=== PATIENT | female | born 1985 | race Caucasian/White ===

== ENCOUNTER → 2018-04-13 16:00 | Outpatient (CLI) | payer OTHER, MEDICAID, SELFPAY ==
[2018-04-13 18:43] LABS: Chlamydia Trachomatis by PCR Negative (Negative); Neisserai gonorrhoeae by PCR Negative (Negative); Probe Check PASS; Sample Adequacy Control PASS; Specimen Processing Control PASS
[2018-04-19 11:45] LABS: HPV Reflexed? NOT INDICATED
== END ==
PROVIDERS: Visit Provider Obstetrics & Gynecology
DX: Z12.4 Encounter for screening for malignant neoplasm of cervix (principal); Z11.3 Encounter for screening for infections with a predominantly sexual mode of transmission
CPT/HCPCS: 87491; 87591; 88175; G0145

== ENCOUNTER → 2018-04-20 14:34 | Outpatient (CLI) | payer OTHER, MEDICAID, SELFPAY ==
[2018-04-20 15:47] LABS: Color, Urine Yellow (Yellow); Glucose, Dipstick Normal (Normal); Ketone-Dipstick 5 mg/dl (Negative); Leukocyte Esterase-Dipstick 25 /ul (Negative); Nitrite-Dipstick Negative (Negative); Occult Blood-Urine Negative /ul (Negative); Protein-Dipstick Negative (Negative); Specific Gravity, Urine 1.025 (1.002-1.030); Urine Bilirubin Dipstick Negative (Negative); Urine Clarity Turbid (Clear); Urine Urobilinogen Normal (Normal)
[2018-04-20 16:00] LABS: Absolute Lymphocyte Count 1.88 X10^3/ul (0.83-4.51); Absolute Neutrophil Count 6.3 X10^3/uL (2.0-7.7); Basophil# 0.02 X10^3/uL; Basophil% 0.2 % (0-1); Eosinophil# 0.28 X10^3/uL; Eosinophils% 3.1 % (0-5); Hematocrit 38.8 % (37-47); Hemoglobin 13.3 g/dl (12.0-15.0); Lymphocyte # 1.88 X10^3/ul (4.0); Lymphocyte % 20.6 % (19-41); Mean Corp Hgb Conc 34.3 g/gl (32-36); Mean Corpuscular Hgb 28.8 pg (27.0-32.0); Mean Platelet Vol. 10.3 fl (6.2-12.0); Monocyte# 0.63 X10^3/uL; Monocyte% 6.9 % (0-10); Neutrophil # 6.31 X10^3/uL (2.7-7.7); Neutrophil % 69.1 % (47-70); Platelet Count 242 K/mm3 (150-450); RBC Distribution Width CV 14.2 % (11.6-14.6); RBC Distribution Width SD 43.1 fl (35.1-43.9); Red Blood Count 4.62 M/mm3 (4.2-5.4); White Blood Count 9.1 K/mm3 (4.4-11.0)
[2018-04-20 16:03] LABS: POSITIVE COUNT NO; POSITIVE DIFFERENTIAL NO; POSITIVE MORPHOLOGY NO
[2018-04-20 16:05] LABS: Amphetamine Urine VISTA NEGATIVE (<1000 ng/mL); Barbiturate Urine VISTA NEGATIVE (< 200 ng/mL); Benzodiazepine Urine VISTA NEGATIVE (< 200 ng/mL); Cocaine Urine VISTA NEGATIVE (< 300 ng/mL); Ecstacy Urine VISTA NEGATIVE (< 500 ng/mL); Methadone Urine VISTA NEGATIVE (< 300 ng/mL); PCP Urine VISTA NEGATIVE (< 25 ng/mL); THC Urine VISTA NEGATIVE (< 50 ng/mL); Vista UDS pH Range 4
[2018-04-20 16:21] LABS: Thyroid Stim Hormone (TSH) 0.61 uIU/mL (0.358-3.74)
[2018-04-20 16:58] LABS: HIV - WCH Non-Reactive (Nonreactive)
[2018-04-22 13:32] LABS: HEPATITIS B SURFACE AG Negative (Negative); Hep C Antibodies 0.1 s/co ratio (0.0-0.9)
[2018-04-27 02:28] LABS: Prenatal RPR NONREACTIVE (NONREACTIVE)
== END ==
PROVIDERS: Visit Provider Obstetrics & Gynecology
DX: Z34.81 Encounter for supervision of other normal pregnancy, first trimester (principal)
CPT/HCPCS: 36415; 80307; 81002; 84443; 85025; 86703; 86762; 86803; 87340

== ENCOUNTER → 2018-08-31 13:00 | Outpatient (CLI) | payer OTHER, MEDICAID, SELFPAY ==
[2018-08-31 16:18] LABS: Hematocrit 34.1 % (37-47); Hemoglobin 11.3 g/dl (12.0-15.0); Mean Corp Hgb Conc 33.1 g/gl (32-36); Mean Corpuscular Hgb 29.1 pg (27.0-32.0); Mean Corpuscular Volume 87.9 fL (81-99); Mean Platelet Vol. 10.5 fl (6.2-12.0); Platelet Count 180 K/mm3 (150-450); RBC Distribution Width CV 13.6 % (11.6-14.6); RBC Distribution Width SD 43.5 fl (35.1-43.9); Red Blood Count 3.88 M/mm3 (4.2-5.4); White Blood Count 7.3 K/mm3 (4.4-11.0)
[2018-08-31 16:19] LABS: Scan Indicated on CBC? Y/N NO
[2018-08-31 16:29] LABS: Glucose Challenge Gest 1H 50g 174 mg/dL (70-140)
--- OUTSIDE RECORDS SUMMARY | 2018-11-05 03:00 | XMS RPT_ITS ---
:1985 Author Organization OHIP Care Team Providers Name Role Phone ARCHANA LAMA Attending Unavailable POOJA MONTENEGRO MD Primary Care Unavailable Vivian George Attending Unavailable Vivian George Attending Unavailable Vivian George Attending Unavailable PROBLEMS PROBLEMS DATE TYPE CONDITION / CODE ATTENDING STATUS SOURCE 08/31/2018 Unknown Z34.82 - Vivian George Active [place] Encounter for Community supervision of Hospital other normal Repository , second trimester / Z34.82(ICD-10) 04/20/2018 Unknown Z34.81 - Vivian George Active [place] Encounter for Community supervision of Hospital other normal Repository , first trimester / Z34.81(ICD-10) 05/11/2018 Unknown Z12.4 - Encounter Vivian George Active [place] for screening for Community malignant Hospital neoplasm of Repository cervix / Z12.4(ICD-10) PROCEDURES PROCEDURES No Procedure Records FoundRESULTS RESULTS CBC-COMPLETE BLOOD CNT Collected: 08/31/2018 Status: F Source: [place] NO DIFF 1:05 PM [facility] REPOSITORY TYPE CODE TESTS RESULT OUT OF RANGE REFERENCE UNITS LAB L100.1000 4.4-11.0 K/mm3 Normal WBC 7.3 LAB L100.1200 4.2-5.4 M/mm3 Low RBC 3.88 LAB L100.1300 12.0-15.0 g/dl Low HGB 11.3 LAB L100.1400 37-47 % Low HCT 34.1 LAB L100.1500 81-99 fL Normal MCV 87.9 LAB L100.1600 27.0-32.0 pg Normal MCH 29.1 LAB L100.1700 32-36 g/gl Normal MCHC 33.1 LAB L100.1810 11.6-14.6 % Normal RDW CV 13.6 LAB L100.1820 35.1-43.9 fl Normal RDW SD 43.5 LAB L100.1900 150-450 K/mm3 Normal PLT 180 LAB L100.2000 6.2-12.0 fl Normal MPV 10.5 Performed By: #### L100.0500 #### [facility] [address] [place], [place], [address] GLUCOSE CHALLENGE GEST Collected: 08/31/2018 Status: F Source: [place] 1H 50G 1:05 PM [facility] REPOSITORY TYPE CODE TESTS RESULT OUT OF RANGE REFERENCE UNITS LAB L501.0250 70-140 mg/dL High GLU GEST 174 50g 1H Performed By: #### L501.0250 #### [facility] [address] [place], [address] URINE DRUG SCREEN Collected: 04/20/2018 Status: F Source: [place] (VISTA) 2:45 PM [facility] REPOSITORY Order Comment: List of Drugs Taken or Suspected? UNK TYPE CODE TESTS RESULT OUT OF RANGE REFERENCE UNITS LAB L505.0075 TO BE Normal CONFIRMED Result Comment: CONFIRMATORY TESTING FOR ALL POSITIVE URINE DRUG SCREEN RESULTS WILL ONLY BE SENT OUT UPON PHYSICIAN ORDER. VISTA Urine Drug Screen methods provide only preliminary analytical test results. A more specific alternate chemical method must be used in order to obtain a confirmed analytical result. Gas chromatography/mass spectrometery (GC/MS) is the preferred confirmatory method. Clinical consideration and professional judgement should be applied to any drug of abuse test result, particularly when preliminary positive results are used. URINE TCA TESTING MUST BE ORDERED SEPARATELY. USE TEST MNEMONIC: [facility]CA LAB L505.5005 VISTA UDS PH 4 Normal LAB L505.5015 <1000 ng/mL AMPHETAMINES Normal NEGATIVE LAB L505.5025 < 200 ng/mL BARBITIURATES Normal NEGATIVE LAB L505.5035 < 200 ng/mL BENZODIAZIPINE Normal NEGATIVE LAB L505.5045 < 300 ng/mL COCAINE Normal NEGATIVE LAB L505.5055 < 500 ng/mL ECSTACY Normal NEGATIVE LAB L505.5065 < 300 ng/mL METHADONE Normal NEGATIVE LAB L505.5075 < 300 ng/mL OPIATES Normal NEGATIVE LAB L505.5085 < 25 ng/mL PCP Normal NEGATIVE LAB L505.5095 < 50 ng/mL THC Normal NEGATIVE Performed By: #### L505.4999 #### [facility] [address] [facility] [place], [place], [address] URINALYSIS, ROUTINE Collected: 04/20/2018 Status: F Source: [place] (DIPSTICK) 2:45 PM [facility] REPOSITORY Order Comment: How was Urine Obtained? Urine, Random TYPE CODE TESTS RESULT OUT OF RANGE REFERENCE UNITS LAB L400.3000 Yellow COLOR Normal Yellow LAB L400.3050 Clear Normal CLARITY Turbid LAB L400.3200 Normal mg/dl Normal GLUCOSE, UR Normal LAB L400.3300 Negative mg/dL Normal BILIRUBIN URINE Negative LAB L400.3400 Negative mg/dl High 5 KETONE UR LAB L400.3465 1.002-1.030 Normal SP.GR. DIPSTX 1.025 LAB L400.3550 5.0 - 8.0 pH UR Normal 5.0 LAB L400.3600 Negative mg/dl PROT Normal DIPSTX Negative LAB L400.3700 Normal mg/dl Normal UROBILI Normal LAB L400.3750 Negative Normal NITRITE UR Negative LAB L400.3780 Negative /ul Normal OCCULT BLOOD-UR Negative LAB L400.3800 Negative /ul High LEUK 25 ESTERASE Performed By: #### L400.2010 #### [facility] [address] [facility] [place], [place], [id number] CBC W/DIFF, AUTOMATED Collected: 04/20/2018 Status: F Source: [place] 2:45 PM [facility] REPOSITORY TYPE CODE TESTS RESULT OUT OF RANGE REFERENCE UNITS LAB L100.1000 4.4-11.0 K/mm3 Normal WBC 9.1 LAB L100.1200 4.2-5.4 M/mm3 Normal RBC 4.62 LAB L100.1300 12.0-15.0 g/dl Normal HGB 13.3 LAB L100.1400 37-47 % Normal HCT 38.8 LAB L100.1500 81-99 fL Normal MCV 84.0 LAB L100.1600 27.0-32.0 pg Normal MCH 28.8 LAB L100.1700 32-36 g/gl Normal MCHC 34.3 LAB L100.1810 11.6-14.6 % Normal RDW CV 14.2 LAB L100.1820 35.1-43.9 fl Normal RDW SD 43.1 LAB L100.1900 150-450 K/mm3 Normal PLT 242 LAB L100.2000 6.2-12.0 fl Normal MPV 10.3 LAB L100.2100 47-70 % Normal NEUT% 69.1 LAB L100.2200 19-41 % Normal LY% 20.6 LAB L100.2300 0-10 % Normal MONO% 6.9 LAB L100.2400 0-5 % Normal EO% 3.1 LAB L100.2500 0-1 % Normal BASO% 0.2 LAB L100.2550 0.0-0.9 % Normal IM GRAN % 0.100 Result Comment: IG% - Immature Granulocytes (promyelocytes, myelocytes and metamyelocytes) > 1% indicates that a LEFT SHIFT is Present. LAB L100.2620 2.0-7.7 X10 3/uL Normal Absolute Neut 6.3 LAB L100.2720 0.83-4.51 X10 3/ul Normal Absolute Lymph 1.88 Performed By: #### L100.0100 #### [facility] [address] [place], [place], [id number] THYROID STIM HORMONE Collected: 04/20/2018 Status: F Source: [place] (TSH) 2:45 PM [facility] REPOSITORY TYPE CODE TESTS RESULT OUT OF RANGE REFERENCE UNITS LAB L501.9520 0.358-3.74 uIU/mL Normal TSH 0.61 Performed By: #### L501.9520 #### [facility] [address] [facility] [place], [address] T AND S-NO Collected: 04/20/2018 Status: F Source: [place] CHARGE W/PNP 2:45 PM [facility] REPOSITORY Order Comment: Reason for Type AND Screen/Red Cells: Surgery? N TYPE CODE TESTS RESULT OUT OF RANGE REFERENCE UNITS LAB B10.0800 A Normal BLOOD POSITIVE TYPE GEL LAB B100.4050 Normal Ab SCREEN NEGATIVE GEL Performed By: #### B100.7550 #### [facility] [facility] [place], [address] RUBELLA IGG Collected: 04/20/2018 Status: F Source: [place] 2:45 PM [facility] REPOSITORY TYPE CODE TESTS RESULT OUT OF RANGE REFERENCE UNITS LAB L509.4000 IU/mL Normal Rubella IgG 66.0 Result Comment: Antibody results Interpretation of Immune Status < 5 IU/ml Presumed Non-immune 5 - < 10 IU/ml Equivocal > or = 10 IU/ml Presumed Immune Performed By: #### L509.4000, L3890.6005 #### [facility] [address] [place] [place], [address] HIV - WCH Collected: 04/20/2018 Status: F Source: [place] 2:45 PM [facility] REPOSITORY TYPE CODE TESTS RESULT OUT OF RANGE REFERENCE UNITS LAB L3890.6005 Nonreactive Normal HIV - WCH Non-Reactive Performed By: #### L509.4000, L3890.6005 #### [facility] [address] [place], [address] HEPATITIS B SURFACE Collected: 04/20/2018 Status: F Source: [place] AG 2:45 PM [facility] REPOSITORY TYPE CODE TESTS RESULT OUT OF RANGE REFERENCE UNITS LAB L3100.0400 Negative Normal HB Negative SURF AG Result Comment: Performed at: [address] [id number] Hands Assembler: Eitan Zacarias PhD, Phone: [phone] Performed By: #### L3100.0390, L3100.0625 #### [facility] (refer to report for specific site) refer to report for address and phone number HEPATITIS C ANTIBODIES Collected: 04/20/2018 Status: F Source: [place] 2:45 PM [facility] REPOSITORY TYPE CODE TESTS RESULT OUT OF RANGE REFERENCE UNITS LAB L3100.0650 0.0-0.9 s/co ratio Normal HEP C AB 0.1 Result Comment: Negative: < 0.8 Indeterminate: 0.8 - 0.9 Positive: > 0.9 The CDC recommends that a positive HCV antibody result be followed up with a HCV Nucleic Acid Amplification test ([id number]). Performed By: #### L3100.0390, L3100.0625 #### [facility] (refer to report for specific site) refer to report for address and phone number RPR Collected: 04/20/2018 Status: F Source: [place] 2:45 PM [facility] REPOSITORY TYPE CODE TESTS RESULT OUT OF REFERENCE UNITS RANGE LAB L700.5100 NONREACTIVE Normal RPR NONREACTIVE Performed By: #### L700.5100 #### [facility] [address] [place], [place], [address] CT/NG WCH BY PCR Collected: 04/13/2018 Status: F Source: [place] 3:15 PM [facility] REPOSITORY TYPE CODE TESTS RESULT OUT OF RANGE REFERENCE UNITS LAB L8200.2100 Negative Normal Chlam Negative Trac PCR LAB L8200.2200 Negative Normal NG by Negative PCR Performed By: #### L8200.2000 #### [facility] [address] [place], [address] PAP I-G W/RFX HRHPV Collected: 04/13/2018 Status: F Source: [place] 3:15 PM [facility] REPOSITORY Order Comment: CYTOLOGY INFORMATION: - CLINICAL INFORMATION: - DATE LMP/MENOPAUSE: 02/19/18 LMP - COLLECTION VIAL: Thin Prep Vial - SUPPLY CRIB ATTENDANT SOURCE: CERVICAL/ENDOCERVICAL - COLLECTION TECHNIQUE: BRUSH/SPATULA Specimen Comment: [id number] Specimen Comment: No. of containers..01 ThinPrep Vial TYPE CODE TESTS RESULT OUT OF RANGE REFERENCE UNITS LAB L7400.0800 . Normal DIAGN Comment Result Comment: NEGATIVE FOR INTRAEPITHELIAL LESION AND MALIGNANCY. LAB L7400.0900 . Normal ADEQ Comment Result Comment: Satisfactory for evaluation. Endocervical and/or squamous metaplastic cells (endocervical component) are present. LAB L7400.1400 . Normal PERFORM Comment Result Comment: Kristen Robbins, Pediatric Hospitalist (ASCP) LAB L7400.2575 . Normal TEST METHOD Comment Result Comment: This liquid based ThinPrep(R) pap test was screened with the use of an image guided system. LAB L7400.2600 . Normal . COMM LAB L7400.2700 . Normal PAPSMR Comment Result Comment: The Pap smear is a screening test designed to aid in the detection of premalignant and malignant conditions of the uterine cervix. It is not a diagnostic procedure and should not be used as the sole means of detecting cervical cancer. Both false-positive and false-negative reports do occur. LAB L7400.2800 . Normal HPV RFLX Comment Result Comment: The HPV DNA reflex criteria were not met with this specimen result therefore, no HPV testing was performed. Performed at: [facility] [id number] Hands Assembler: Crystal Shepard MD, Phone: [phone] Performed By: #### L7400.0350 #### [facility] (refer to report for specific site) refer to report for address and phone number PROGRESS Observed: 03/19/2018 Status: COMPLETED Source: [place] 4:45 PM [facility] [place] REPOSITORY HNO ID: [id number] Author: Bebeto Bhatt ([place]) [place] Service: (none) Author Type: Physician Devops Engineer Type: Progress Notes Filed: 03/19/2018 4:49 PM Note Text: Subjective HPI Pt presents with left ear pain. She noticed this the past couple of days. No fevers or chills. No cough or congestion. She feels like both ears are plugged but today the left started hurting. No discharge form the ear. No recent swimming. Review of Systems HENT: Positive for ear pain. All other systems reviewed and are negative. No past medical history on file. Current Outpatient Prescriptions: azithromycin (ZITHROMAX Z-EDNA) 250 mg tablet Take 2 tablets day one, then, 1 tablet daily until gone. Disp: 1 Package Rfl: 0 cetirizine (ZYRTEC) 10 mg tablet Take 1 tablet by mouth once daily for 14 days. Disp: 14 tablet Rfl: 0 lactobacillus rhamnosus (CULTURELLE) 15 billion cell capsule Take 1 capsule by mouth once daily. Disp: 14 capsule Rfl: 0 fluconazole (DIFLUCAN) 150 mg tablet Take 1 tablet by mouth once daily for 1 day. Disp: 1 tablet Rfl: 0 ibuprofen (MOTRIN) 800 mg tablet Take 1 tablet by mouth every 8 hours as needed for Pain. Take with food. Disp: 20 tablet Rfl: 0 No current facility-administered medications for this visit. No past surgical history on file. No family history on file. Social History Substance Use Topics - Smoking status: Current Every Day Smoker - Smokeless tobacco: Never Used - Alcohol use Not on file BP 112/86 (BP Site: Left Arm, BP Position: Sitting, BP Cuff Size: Large Adult) Pulse 84 Temp 37.7 ?C (99.9 ?F) (Right Tympanic) Resp 16 Wt 81 kg (178 lb 9.6 oz) LMP 02/19/2018 (Approximate) SpO2 97% Objective Physical Exam Constitutional: She is oriented to person, place, and time and well-developed, well-nourished, and in no distress. HENT: Head: Normocephalic and atraumatic. Right Ear: Tympanic membrane, external ear and ear canal normal. Left Ear: External ear and ear canal normal. Nose: Nose normal. Mouth/Throat: Uvula is midline, oropharynx is clear and moist and mucous membranes are normal. Left TM bulging and erythematous. Cardiovascular: Normal rate, regular rhythm and normal heart sounds. Pulmonary/Chest: Effort normal and breath sounds normal. Neurological: She is alert and oriented to person, place, and time. Skin: Skin is warm and dry. Psychiatric: Affect and judgment normal. Nursing note and vitals reviewed. ASSESSMENT/PLAN: 1. Acute otitis media, left - ICD9: 382.9, ICD10: H66.92 - Will begin treatment with as per antibiotic as written, see orders - The patient should also be given antihistamines and motrin for the first 5-7 days of treatment. - pt currently has a yeast infection, discussed this will likely worsen with antibiotic concepcion. Given diflucan. - Supportive care with plenty of fluids, rest, and analgesia prn. - Follow up in one week if symptoms persist or worsen. Bebeto Mclaughlin PA-C CNOV Observed: 03/19/2018 Status: COMPLETED Source: [place] 3:[address] [facility] REPOSITORY Office Visit ([facility]) CAMRON CANCHOLA ([id number]) 1985 F Date Time Provider Department 03/19/18 3:00 PM BEBETO MCLAUGHLIN ([place]) [facility] During your visit today, we recorded the following information about you: Temperature Pulse Respiration Blood pressure 99.9 degrees 84/minute 16/minute 112/86 Weight Last Period 81 kg 02/19/18 Bebeto Mclaughlin PA-C 03/19/2018 4:49 PM Signed Subjective HPI Pt presents with left ear pain. She noticed this the past couple of days. No fevers or chills. No cough or congestion. She feels like both ears are plugged but today the left started hurting. No discharge form the ear. No recent swimming. Review of Systems HENT: Positive for ear pain. All other systems reviewed and are negative. No past medical history on file. Current Outpatient Prescriptions: azithromycin (ZITHROMAX Z-EDNA) 250 mg tablet Take 2 tablets day one, then, 1 tablet daily until gone. Disp: 1 Package Rfl: 0 cetirizine (ZYRTEC) 10 mg tablet Take 1 tablet by mouth once daily for 14 days. Disp: 14 tablet Rfl: 0 lactobacillus rhamnosus (CULTURELLE) 15 billion cell capsule Take 1 capsule by mouth once daily. Disp: 14 capsule Rfl: 0 fluconazole (DIFLUCAN) 150 mg tablet Take 1 tablet by mouth once daily for 1 day. Disp: 1 tablet Rfl: 0 ibuprofen (MOTRIN) 800 mg tablet Take 1 tablet by mouth every 8 hours as needed for Pain. Take with food. Disp: 20 tablet Rfl: 0 No current facility-administered medications for this visit. No past surgical history on file. No family history on file. Social History Substance Use Topics - Smoking status: Current Every Day Smoker - Smokeless tobacco: Never Used - Alcohol use Not on file BP 112/86 (BP Site: Left Arm, BP Position: Sitting, BP Cuff Size: Large Adult) Pulse 84 Temp 37.7 ?C (99.9 ?F) (Right Tympanic) Resp 16 Wt 81 kg (178 lb 9.6 oz) LMP 02/19/2018 (Approximate) SpO2 97% Objective Physical Exam Constitutional: She is oriented to person, place, and time and well-developed, well-nourished, and in no distress. HENT: Head: Normocephalic and atraumatic. Right Ear: Tympanic membrane, external ear and ear canal normal. Left Ear: External ear and ear canal normal. Nose: Nose normal. Mouth/Throat: Uvula is midline, oropharynx is clear and moist and mucous membranes are normal. Left TM bulging and erythematous. Cardiovascular: Normal rate, regular rhythm and normal heart sounds. Pulmonary/Chest: Effort normal and breath sounds normal. Neurological: She is alert and oriented to person, place, and time. Skin: Skin is warm and dry. Psychiatric: Affect and judgment normal. Nursing note and vitals reviewed. ASSESSMENT/PLAN: 1. Acute otitis media, left - ICD9: 382.9, ICD10: H66.92 - Will begin treatment with as per antibiotic as written, see orders - The patient should also be given antihistamines and motrin for the first 5-7 days of treatment. - pt currently has a yeast infection, discussed this will likely worsen with antibiotic concepcion. Given diflucan. - Supportive care with plenty of fluids, rest, and analgesia prn. - Follow up in one week if symptoms persist or worsen. Bebeto Mclaughlin PA-C Referring Provider: SELF [200] Allergies As of Date: 03/19/2018 Noted Allergy Reaction PENICILLIN 03/19/2018 7 - Swelling VICODIN (HYDROCODONE-ACETAMINOPHE*03/19/2018 11 - Vomiting Date Reviewed: Never Reviewed Reason for Visit: left ear pain [Other] Primary Visit Diagnosis:Acute otitis media, left [H66.92] Order(s):azithromycin (ZITHROMAX Z-EDNA) 250 mg tabletTake 2 tablets day one, then, 1 tablet daily until gone.Disp: 1 PackageRfl: 0 cetirizine (ZYRTEC) 10 mg tabletTake 1 tablet by mouth once daily for 14 days.Disp: 14 tabletRfl: 0 lactobacillus rhamnosus (CULTURELLE) 15 billion cell capsuleTake 1 capsule by mouth once daily.Disp: 14 capsuleRfl: 0 fluconazole (DIFLUCAN) 150 mg tabletTake 1 tablet by mouth once daily for 1 day.Disp: 1 tabletRfl: 0 ibuprofen (MOTRIN) 800 mg tabletTake 1 tablet by mouth every 8 hours as needed for Pain. Take with food.Disp: 20 tabletRfl: 0 Prescriptions as of 03/19/2018 Sig: AZITHROMYCIN 250 MG TABLET Take 2 tablets day one, then,* CETIRIZINE 10 MG TABLET Take 1 tablet by mouth once d* LACTOBACILLUS RHAMNOSUS GG 15* Take 1 capsule by mouth once * FLUCONAZOLE 150 MG TABLET Take 1 tablet by mouth once d* IBUPROFEN 800 MG TABLET Take 1 tablet by mouth every * Problem List As Of Date: 03/19/2018 (None) Prescriptions ordered this encounter Disp Refills Start End AZITHROMYCIN 250 MG TABLET 1 Pa* 0 03/19/2018 03/24/2018 Sig: Take 2 tablets day one, then, 1 tablet daily until gone. CETIRIZINE 10 MG TABLET 14 t* 0 03/19/2018 04/02/2018 Route: ORAL Sig: Take 1 tablet by mouth once daily for 14 days. LACTOBACILLUS RHAMNOSUS GG 15 BILLIO* 14 c* 0 03/19/2018 Route: ORAL Sig: Take 1 capsule by mouth once daily. FLUCONAZOLE 150 MG TABLET 1 ta* 0 03/19/2018 03/20/2018 Route: ORAL Sig: Take 1 tablet by mouth once daily for 1 day. IBUPROFEN 800 MG TABLET 20 t* 0 03/19/2018 Route: ORAL Sig: Take 1 tablet by mouth every 8 hours as needed for Pain. Take with food. Encounter Status:Closed by BEBETO MCLAUGHLIN PA-C on 03/19/18 ALLERGIES ALLERGIES DATE TYPE / CODE NAME / CODE REACTION SEVERITY SOURCE 05/27/2017 Drug Penicillins/ Swelling Unknown [place] [facility] Allergy/4160 [id number](R [facility] [address]92(SNOMED XNORM) Repository CT) ENCOUNTERS ENCOUNTERS ADMIT/DISCHARGE ACCOUNT NUMBER ADMITTING ENCOUNTER LOCATION SOURCE CLASS 08/31/2018 [id number] Ambulatory [facility] ding:WOBLAB Repository 04/20/2018 [id number] Ambulatory [facility] ding:WOBLAB Repository 04/13/2018 [id number] Ambulatory [facility] ding:LABSPEC Repository 03/19/2018/03/20/20 [id number] Ambulatory [address] Repository 10/13/2017/10/14/19 [id number] Emergency BBuilding:[address] Repository PAYERS PAYERS ENCOUNTER GUARANTOR PAYER SUBSCRIBER SOURCE 08/31/2018 Camron Branham Primary Camron Samayoaworth1048 Insurance:WINTER ConnellB: [facility] RDAPT EXCHANGE [facility] [id number] Number: Repository [address]Evt: 330 [id number] [phone] (HP) Date:8011-02-50JZ [address] [place] [address]UR: 08/31/2018 Secondary Camron Pintooster Insurance:CARESOURCELLIo KoB: [facility] Number: [id number] Hospital [id number] Repository Date:2018-08-31 [address]ATTN: [place] [address]DE: 08/31/2018 Tertiary NOT GIVENUNK [place] Insurance:SELF PAY [facility] Number: Effective Repository Date:2018-08-31 04/20/2018 Camron Branham Primary Camron Arnold [id number] Insurance:WINTER ConnellB: [facility] [address] [facility] [id number] Number: Repository [id number]: 330 [id number] [phone] (HP) Date:[id number] [address] [place] [address]RS: 04/20/2018 Secondary Camron Branham [place] Insurance:CARESOURCEPo LongworthDOB: Community licy Number: [id number] Hospital [id number] Repository Date:2018-04-20 [address]ATTN: [place] [address]RE: 04/20/2018 Tertiary NOT GIVENUNK [place] Insurance:SELF PAY [facility] Number: Effective Repository Date:2018-04-20 04/13/2018 Camron Branham Primary Camron Branham [facility]1048 Insurance:WINTER ConnellB: [facility] [address] [facility] [id number] Number: Repository [id number]: [phone]) [id number] [phone] () Date:1184-06-46VT [address] [place] [address]BG: 04/13/2018 Secondary Camron Branham [place] Insurance:CARESOURCEPo LongworthDOB: Community licy Number: [id number] Hospital [id number] Repository Date:2018-04-13 [address]ATTN: [place] [address]FO: 04/13/2018 Tertiary NOT GIVENUNK [place] Insurance:SELF PAY [facility] Number: Effective Repository Date:2018-04-13 10/13/2017 CAMRON Branham [facility] CAMRON [facility] LONGONSTEDDOB: Insurance:WINTER CANCHOLADOB: [facility] BRISTOL [facility] [id number] Repository calvin rdapt Number: [address] [id number] rdapt [address] [place] [address], [address]Nln: ([phone]) Date:2017-10-13 [place] [address]Pwt: [phone] (HP)Tel: ([phone]) Name:[address] () () [address]Kxqfahs, [place] [phone] (WP) [address]QO: 10/13/2017 Secondary CAMRON [facility] Insurance:[facility] HEALTHCARERiky [facility]: Foundation MEDICAIDPolicy Number: [id number] Repository [id number] calvin Date:2017-10-13apt BLAIRSDEN [id number] [place] [address]Usd: Name:KARINA Campbell [address] [place] [address] ()Tel: [phone]: (wp) [phone]
== END ==
PROVIDERS: Visit Provider Obstetrics & Gynecology
DX: Z34.82 Encounter for supervision of other normal pregnancy, second trimester (principal)
CPT/HCPCS: 36415; 82950; 85027

== ENCOUNTER → 2018-09-17 09:02 | Outpatient (CLI) | payer BC, MEDICAID, SELFPAY ==
[2018-09-17 10:01] LABS: Glucose GTT-Gestation. Fasting 98 mg/dL (<105)
[2018-09-17 11:34] LABS: Glucose GTT-Gestational 1 Hr 172 mg/dL (<190)
[2018-09-17 12:06] LABS: Glucose GTT-Gestational 2 Hr 154 mg/dL (<165)
[2018-09-17 13:08] LABS: Glucose GTT-Gestational 3 Hr 139 L (<145)
== END ==
PROVIDERS: Family Provider Family Medicine; PCP Family Medicine; Referring Provider Obstetrics & Gynecology; Visit Provider Obstetrics & Gynecology
DX: O24.912 Unspecified diabetes mellitus in pregnancy, second trimester (principal); Z3A.00 Weeks of gestation of pregnancy not specified
CPT/HCPCS: 36415; 82951; 82952

== ENCOUNTER → 2018-10-19 16:58 | Outpatient (CLI) | payer BC, MEDICAID, SELFPAY | PROVIDERS: Family Provider Family Medicine; PCP Family Medicine; Referring Provider Obstetrics & Gynecology; Visit Provider Obstetrics & Gynecology | DX: Z36.85 Encounter for antenatal screening for Streptococcus B (principal) | CPT/HCPCS: 87081 ==

== ENCOUNTER 2018-10-23 07:40 | Outpatient (CLI) | payer BC, MEDICAID, SELFPAY ==
[2017-06-01 17:34] VITALS: BMI 33.9
[2018-10-23 08:36] VITALS: BMI 33.7
[2018-10-23 08:57] LABS: Hematocrit 34.8 % (37-47); Hemoglobin 11.4 g/dl (12.0-15.0); Mean Corp Hgb Conc 32.8 g/gl (32-36); Mean Corpuscular Hgb 27.7 pg (27.0-32.0); Mean Corpuscular Volume 84.5 fL (81-99); Platelet Count 171 K/mm3 (150-450); RBC Distribution Width CV 13.3 % (11.6-14.6); RBC Distribution Width SD 40.4 fl (35.1-43.9); Red Blood Count 4.12 M/mm3 (4.2-5.4); White Blood Count 8.4 K/mm3 (4.4-11.0)
[2018-10-23 09:01] LABS: Scan Indicated on CBC? Y/N NO
[2018-10-23] MEDS: Betamethasone/Betamethasone 30 MG/5 ML Vial 12 MG IM (09:01)
[2018-10-23] MEDS: 0.9% Saline Lock 10 ML Syringe IV (09:03)
--- NOTE | 2018-10-25 08:40 | OB.TRI.HP_ITS ---
History of Present Illness Date of Service: 10/23/18 Was patient seen by the physician?: No Reason For Visit: LABOR AND DELIVERY Date of Service: 10/23/18 Final DELGADO: 11/26/18 Final DELGADO Source: US <20 weeks Gestational age: 35 Weeks and 1 Days History of Present Illness: 33 yo with h/o delivery , on weekly progesterone injections. Presents for labor check. Allergies acetaminophen [From Vicodin] Adverse Reaction (Verified 10/23/18 08:38) Vomiting hydrocodone [From Vicodin] Adverse Reaction (Verified 10/23/18 08:38) Vomiting Penicillins Adverse Reaction (Verified 10/23/18 08:38) Swelling Laboratory Studies: Laboratory Tests 10/23/18 10/23/18 Range/Units 08:35 08:35 WBC 8.4 (4.4-11.0) K/mm3 RBC 4.12 L (4.2-5.4) M/mm3 Hgb 11.4 L (12.0-15.0) g/dl Hct 34.8 L (37-47) % MCV 84.5 (81-99) fL MCH 27.7 (27.0-32.0) pg MCHC 32.8 (32-36) g/gl RDW 13.3 (11.6-14.6) % RDW Differential 40.4 (35.1-43.9) fl Plt Count 171 (150-450) K/mm3 MPV 11.0 (6.2-12.0) fl Blood Type A POSITIVE Antibody Screen NEGATIVE Physical Exam Cervix Dilation (cm): 3 - no change with prolonged observation NST - FHR Rate Baby A Baseline: 120-130 avg with accels 170s, occ variable to 110 Variability:: Moderate Accelerations:: 15 x 15 Decelerations:: Variable - short and mild , to 110 with return within 10 sec. NST Reactive:: Yes, Appropriate for gestational age FHR Category:: Category I Uterine Activity:: Irregular UCs, Irritability. q 2-4+ mins Impression/Plan 35 1/7 wk with UCs. On weekly progesterone injections with h/o prior delivery. Reactive NST. No further change of cervix with prolonged observation. Betamethasone given, return in 24 hr for second dose. Continue weekly progesterone injections To [facility] for next scheduled visit Return to [facility] if inc s/sx of labor.
== END 2018-10-23 15:00 | disposition home or self-care (01) ==
LOC: WPOUT 08:10 → WP 08:10 → WPOUT 08:19 → WP 08:20
PROVIDERS: Family Provider Family Medicine; PCP Family Medicine; Referring Provider Obstetrics & Gynecology; Visit Provider Obstetrics & Gynecology
DX: O60.03 Preterm labor without delivery, third trimester (principal); Z3A.35 35 weeks gestation of pregnancy
CPT/HCPCS: 36415; 59025; 59050; 85027; 86850; 86900; 96372; 99218; A4216; G0378; J0702

== ENCOUNTER 2018-10-24 08:55 | Outpatient (CLI) | payer BC, MEDICAID, SELFPAY ==
[2018-10-23 08:36] VITALS: BMI 33.7
[2018-10-24 09:05] VITALS: BMI 33.3
[2018-10-24] MEDS: Betamethasone/Betamethasone 30 MG/5 ML Vial 12 MG IM (09:21)
--- NOTE | 2018-10-26 19:19 | OB.TRI.NOTE ---
History of Present Illness Date of Service: 10/26/18 Was patient seen by the physician?: No Reason For Visit: CELESTONE INJECTION Date of Service: 10/26/18 Final DELGADO: 11/26/18 Final DELGADO Source: US <20 weeks Gestational age: 35 Weeks and 4 Days History of Present Illness: history of labor Allergies hydrocodone [From Vicodin] Adverse Reaction (Verified 10/23/18 08:38) Vomiting Penicillins Adverse Reaction (Verified 10/23/18 08:38) Swelling Physical Exam General: Alert, Oriented x3, Cooperative, No apparent distress Abdomen: Soft, Non Tender, Non-Distended, Gravid, Appropriate for Gestational Age Extremities:: No edema Neurological: Neuro grossly intact 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 Some bleeding present. Will observe for now.
== END 2018-10-24 09:30 | disposition home or self-care (01) ==
LOC: WPOUT 08:59 → WP 09:01
PROVIDERS: Family Provider Family Medicine; PCP Family Medicine; Referring Provider Obstetrics & Gynecology; Visit Provider Obstetrics & Gynecology
DX: O09.213 Supervision of pregnancy with history of pre-term labor, third trimester (principal); Z3A.35 35 weeks gestation of pregnancy
CPT/HCPCS: 96372; 99218; G0378; J0702

== ENCOUNTER 2018-10-26 11:03 | Inpatient (IN) | payer BC, MEDICAID, SELFPAY ==
[2018-10-26 08:02] VITALS: BMI 33.3
[2018-10-26] MEDS: 0.9% Saline Lock 10 ML Syringe IV ×2 (08:10→20:00)
[2018-10-26 08:38] LABS: Hematocrit 32.3 % (37-47); Hemoglobin 10.6 g/dl (12.0-15.0); Mean Corp Hgb Conc 32.8 g/gl (32-36); Mean Corpuscular Hgb 27.7 pg (27.0-32.0); Mean Corpuscular Volume 84.6 fL (81-99); Platelet Count 177 K/mm3 (150-450); RBC Distribution Width CV 13.7 % (11.6-14.6); RBC Distribution Width SD 41.9 fl (35.1-43.9); Red Blood Count 3.82 M/mm3 (4.2-5.4); White Blood Count 8.9 K/mm3 (4.4-11.0)
[2018-10-26 08:41] LABS: Scan Indicated on CBC? Y/N NO
[2018-10-26] MEDS: Lactated Ringers 1,000 ML 50 ML IV ×2 (12:53→14:05)
[2018-10-26] MEDS: fentaNYL-bupivacaine (epidural) 100 ML BAG EPIDURAL (14:57)
--- NOTE | 2018-10-26 15:10 | PCM.PN.BLA ---
Progress Note LAOBR PROGRESS NOTE Comfortable w/ epidural, but nauseated Will give Zofran AVSS EFM 130-140s avg variability Accels UCs q 2-4 mins CX: 80/-3 Vtx well applied to cervix. AROM copious clear fluid A/P: 35 4/7 wk labor Change from 50 to and inc pain with UCs. Admitted and epidural placed. AROM . consider Pitocin prn, position changes. Anticipate .
[2018-10-26] MEDS: Oxytocin 30 units/NS 500 ml 30 UNITS/500 ML IV.SOLN IV (16:18)
[2018-10-26] MEDS: Ondansetron 4 MG/2 ML Vial IV (17:22)
--- NOTE | 2018-10-26 18:40 | PLAC_PTH ---
PATIENT: CAMRON CANCHOLA LOC: WP U#:[id number] AGE/SX: 33/F ROOM: WP003 RE10/26/[address]: Dr. Jose Martin Matta MD : 1985 BED: 1 DIS: 10/28/2018 SPEC #: [id number] RECD: 10/26/18 19:32 STATUS: RIKKI REAkhil #: [id number] SABA: 10/26/18 18:[address]: Jose Martin Matta DEPT: SURGICAL PATHOLOGY RECD BY: Marilyn Krause ENTERED: 10/29/18 09:11 SP TYPE: PLACENTA OTHR DR: Dr. Luis Lawrence MD Tissues: Placenta, NOS Procedures: Surgery Specimen Level V HEADER OPERATION: Vaginal delivery PRE-OP DIAGNOSIS: Prematurity TISSUE SUBMITTED: Placenta MICROSCOPIC DIAGNOSIS Placenta: Placental disc - third trimester placenta (378 gm). Membranes - no pathologic diagnosis. Umbilical cord - three blood vessels and no pathologic diagnosis. SJ:linnette 10/30/18 MICROSCOPIC DESCRIPTION Slides are reviewed. GROSS DESCRIPTION SPECIMEN: PLACENTA / CLINICAL INFORMATION: A. Weight: 2.894 kg B. Gestational Age: 35 weeks C. Sex: Male PLACENTAL WEIGHT (POST FIXATION): 378 gm PLACENTAL DIMENSIONS: 16.5 x 13 x 4 cm PLACENTAL SHAPE: Usual ovoid PLACENTAL WEIGHT FOR GESTATIONAL AGE: Within 10-99th percentile MEMBRANES - Present A. Insertion: Marginal B. Site of rupture from edge: 6 cm from edge of placental disc C. Color of membrane: Marquez-fuchs D. Abnormalities: None UMBILICAL CORD - Present A. Color: Marquez-fuchs B. Insertion: Detached and presumed eccentric C. Length: 43 cm D. Diameter: 1.3 cm E. Number of vessels: Three F. Abnormalities: None PLACENTAL DISC - Present A. Color of surface: Marquez-fuchs B. surface abnormalities: None C. Maternal cotyledons: Intact with minimal tears D. Attached retro placental clot: No clot E. Cut surface: Dark red and spongy F. Lesions: None G. Separate clot: Absent SECTIONS SUBMITTED: 1. Umbilical cord ( end notched) 2. Membranes 3. Placental disc, and maternal surfaces 4. Placental disc, and maternal surfaces 5. Placental disc, and maternal surfaces AM:linnette 10/29/18 TC:4 CPT: 03876
[2018-10-26] MEDS: Oxytocin 30 units/NS 500 ml 30 UNITS/500 ML IV.SOLN 334 UNITS IV (18:57)
--- NOTE | 2018-10-26 19:08 | PCM.OB.VAG ---
Vaginal Delivery Maternal Presentation: Active Labor presented at 35w4d ega in active labor. Amniotic Membrane Rupture Type: Artificial Rupture of Membrane time: 1300 Amniotic Fluid Description: Clear Final DELGADO: 11/26/18 Final DELGADO Source: US <20 weeks Gestational age: 35 Weeks and 4 Days Date of Procedure: 10/26/18 Pre-Operative Diagnosis: active labor Post-Operative Diagnosis: same Surgery/ Procedure Performed: Spontaneous Vaginal Delivery Anesthesiologist: Patricio Huerta Type of Anesthesia: Epidural Description of Procedure: Progressed rapidly from 4 cm to FD then pushed for about 25 minutes to deliver a live male without complication. After delivery the mouth was suctioned with a bulb suction. The cord was then clamped and cut. The baby was then taken to to the warmer for evaluation by Dr. Reyes. There was an active cry at delivery. The umbilical cord was evulsed during delivery of the placenta and it was necessary to manually deliver the placenta. It was delivered intact. The uterus contracted well. The cervix, upper and lower vagina and perineum were intact. Presentation: Vertex Placental Delivery Description: Spontaneous Placenta Disposition: [facility] Percentage of Placenta Abruption: 0 Cord Vessel Description: 3 Vessels Nuchal Cord Compression: Without compression Cord Entanglement: None Drain: Wagner to straight drain Estimated Blood Loss: 200cc A gender: Male (1 minute): 8 (5 minute): 9 Episiotomy Description: None Laceration: None Medications given after delivery: IV Pitocin Complications: None
--- NOTE | 2018-10-26 19:19 | DCINST_ITS ---
Discharge Diet: No Restrictions Discharge Activity: Return to Normal Activity, May Drive, May Shower Return to work on:: 12/12/18 May shower in (days): 0 May resume sexual activity in: 4-6 weeks Call your doctor if your incision/area has: Sudden Increased Bleeding, Increased Pain/ Swelling, Foul Smelling Discharge Call your doctor if you observe: Fever of 101 or Higher, Inability to urinate, Inability to have a bowel movement, Using more than one pad per hour, Shortness of breath, Chest pain, Calf discomfort, Uncontrolled pain Cleanse incision/area with: Soap & Water Additional Instructions: If you experience any of the following, contact your healthcare provider. * Bleeding that soaks a pad every hour for 2 hours * Fever 100.4 or higher * Unrelieved incision or abdominal pain * Swelling, redness, discharge or bleeding from your incision or episiotomy site * Your incision begins to separate * Problems urinating (including inability to urinate or burning while urinating). * Visual changes * Severe headache * Flu-like symptoms * Pain or redness in one of both of your breasts * Pain, warmth, tenderness or swelling in your legs, especially the calf area * Frequent nausea and vomiting * Symptoms of depression or anxiety If you experience any of the following, call 911 or go to the nearest Emergency Room. * Chest pain * Problems breathing * Seizure activity * Partial or complete paralysis of a body part, slurred speech, weakness or drooping of the face, or a sudden inability to walk or hold your balance Allergies/Adverse Reactions: Allergies hydrocodone [From Vicodin] Adverse Reaction (Verified 10/23/18 08:38) Vomiting Penicillins Adverse Reaction (Verified 10/23/18 08:38) Swelling Medications to take at Discharge Hydroxyprogesterone Caproat/Pf [Verna 275 mg/1.1 ml Autoinjct] 275 mg SQ QWEEK 10/23/18 Pnv No.95/Ferrous Fum/Folic AC [ Vitamin Tablet] 1 tab PO DAILY 10/23/18 Ibuprofen 600 mg PO 4X/DAY #30 tab 10/26/18 The following prescriptions were given: Ibuprofen 600 mg PO 4X/DAY #30 tab Please Follow Up With: Vivian George MD When: 6 weeks Primary Care Physician: Luis Lawrence MD [Primary Care Provider] - Test Results: Test results from this visit will be discussed in further detail at your follow- up appointment, if applicable. Proposed Discharge Date: 10/28/18
[2018-10-26] MEDS: Oxytocin 30 units/NS 500 ml 30 UNITS/500 ML IV.SOLN 167 UNITS IV (19:27)
[2018-10-26 21:25] VITALS: BP 129/81; RESP 18; TEMP 37
[2018-10-27 00:10] VITALS: BP 113/71; PULSE 66; RESP 18; TEMP 37.6
[2018-10-27] MEDS: Ibuprofen 600 MG Tablet PO ×3 (00:30→20:03)
[2018-10-27] MEDS: Acetaminophen 500 MG Tablet 1000 MG PO ×2 (03:41→15:07)
[2018-10-27 04:32] VITALS: BP 129/82; PULSE 66; RESP 18; TEMP 36.2; O2SAT 100
[2018-10-27 04:37] LABS: Hematocrit 32.4 % (37-47); Hemoglobin 10.5 g/dl (12.0-15.0); Mean Corp Hgb Conc 32.4 g/gl (32-36); Mean Corpuscular Hgb 27.6 pg (27.0-32.0); Mean Corpuscular Volume 85.3 fL (81-99); Mean Platelet Vol. 10.7 fl (6.2-12.0); Platelet Count 172 K/mm3 (150-450); RBC Distribution Width CV 13.3 % (11.6-14.6); RBC Distribution Width SD 40.3 fl (35.1-43.9); White Blood Count 10.6 K/mm3 (4.4-11.0)
[2018-10-27 04:38] LABS: Scan Indicated on CBC? Y/N NO
--- NOTE | 2018-10-27 08:54 | PCM.PN.OB ---
Subjective: No complaints. Breast feeding. Bleeding light. Objective: Afeb VSS Hgb appropriate PP day#1. - Physical Exam General: Alert, Oriented x3, Cooperative, No apparent distress Lungs: Clear to auscultation, Normal air movement Cardiovascular: Regular rate, Regular Rhythm Abdomen: Soft, Non Tender, Non-Distended Extremities: No edema, No Calf Tenderness Skin: No rashes Neurological: Neuro grossly intact Psych/Mental Status: Normal Affect Comment: Lochia light Vital Signs Temp Pulse Resp BP Pulse Ox 97.1 F L 66 18 129/82 H 100 10/27/18 04:32 10/27/18 04:32 10/27/18 04:32 10/27/18 04:32 10/27/18 04:32 Oxygen Delivery Method Room Air Weight: 188 lb 4.396 oz Body Mass Index (BMI) 33.3 Intake and Output for Last 24 Hours 10/25/18 10/26/18 10/27/18 23:59 23:59 23:59 Intake Total 334 / 334 Output Total 200 / 200 875 / 875 Balance -200 / -200 -541 / -541 Laboratory Tests Past 24 Hrs 10/26/18 10/27/18 08:10 04:30 WBC 10.6 RBC 3.80 L Hgb 10.5 L Hct 32.4 L MCV 85.3 MCH 27.6 MCHC 32.4 RDW 13.3 RDW Differential 40.3 Plt Count 172 MPV 10.7 Blood Type A POSITIVE Antibody Screen NEGATIVE Medical Necessity - Tobacco Use Smoking Status: Former smoker Assessment/Plan All Active Problems labor (Acute) Doing well on PP day#1. baby in special care nursery for glucose level issues. Continue routine PP care.
[2018-10-27 10:00] VITALS: BP 124/88; PULSE 82; RESP 12; TEMP 37.1
[2018-10-27] MEDS: Prenatal Vits Tablet 1 TABLET PO (13:03)
[2018-10-27 14:00] VITALS: BP 119/75; PULSE 69; RESP 16; TEMP 36.8
[2018-10-27 20:10] VITALS: BP 119/74; PULSE 72; RESP 16; TEMP 36.9
[2018-10-28] MEDS: Acetaminophen 500 MG Tablet 1000 MG PO (00:06)
[2018-10-28 02:00] VITALS: BP 113/79; PULSE 60; RESP 16; TEMP 36.7
[2018-10-28] MEDS: Ibuprofen 600 MG Tablet PO ×2 (02:06→08:13)
--- NOTE | 2018-10-28 06:42 | NURSING ---
pt called, had egg sized shredded looking clot in toilet, fundus firm with no gushing with check. pt will call if she has more.
[2018-10-28 08:10] VITALS: BP 115/79; PULSE 73; RESP 16; TEMP 36.7; O2SAT 97
--- NOTE | 2018-10-28 08:35 | PCM.PN.OB ---
Subjective: Doing well. No specific complaints. Breast feeding. Bleeding appropriate. Objective: Afeb VSS - Physical Exam General: Alert, Oriented x3, Cooperative, No apparent distress Lungs: Clear to auscultation, Normal air movement Cardiovascular: Regular rate, Regular Rhythm Abdomen: Soft, Non Tender, Non-Distended Extremities: No edema Skin: No rashes Neurological: Neuro grossly intact Psych/Mental Status: Normal Affect Comment: Lochia light Vital Signs Temp Pulse Resp BP Pulse Ox 98.1 F 73 16 115/79 97 10/28/18 08:10 10/28/18 08:10 10/28/18 08:10 10/28/18 08:10 10/28/18 08:10 Oxygen Delivery Method Room Air Weight: 188 lb 4.396 oz Body Mass Index (BMI) 33.3 Intake and Output for Last 24 Hours 10/26/18 10/27/18 10/28/18 23:59 23:59 23:59 Intake Total 334 / 334 Output Total 200 / 200 875 / 875 Balance -200 / -200 -541 / -541 Medical Necessity - Tobacco Use Smoking Status: Former smoker Assessment/Plan All Active Problems labor (Acute) Doing well on PP day#2. Baby is in special care nursery for blood sugar issues. Chelsie is cleared for discharge to hotel status today. Home going instructions and warnings given.
--- NOTE | 2018-10-28 08:40 | DS.PCM_ITS ---
Discharge Date and Diagnosis Date of Admission: 10/26/18 - 33 3/7 wk EGA Date of Discharge: 10/28/18 - Primary Discharge Diagnosis s/p , labor Hospital Course and Treatment Operations: None Procedures: - - Epidural anesthesia, pitocin labor augmentation, amniotomy, Summary of Care Provided: The patient is a 33 year old F [admitted at 35+ weeks in active labor. She had received two doses of celestone to promote lung maturity. She progressed to fully dilated then pushed for a short time to deliver a live without complication. Post course was unremarkable. she was discharged home on PP day#2.] - Physical Exam Vital Signs Temp Pulse Resp BP Pulse Ox 98.1 F 73 16 115/79 97 10/28/18 08:10 10/28/18 08:10 10/28/18 08:10 10/28/18 08:10 10/28/18 08:10 Oxygen Delivery Method Room Air Weight: 188 lb 4.396 oz Body Mass Index (BMI) 33.3 Intake and Output for Last 24 Hours 10/26/18 10/27/18 10/28/18 23:59 23:59 23:59 Intake Total 334 / 334 Output Total 200 / 200 875 / 875 Balance -200 / -200 -541 / -541 Discharge Diet: No Restrictions Discharge Activity: Return to Normal Activity, May Drive, May Shower Return to work on:: 12/12/18 May shower in (days): 0 May resume sexual activity in: 4-6 weeks Call your doctor if your incision/area has: Sudden Increased Bleeding, Increased Pain/ Swelling, Foul Smelling Discharge Call your doctor if you observe: Fever of 101 or Higher, Inability to urinate, Inability to have a bowel movement, Using more than one pad per hour, Shortness of breath, Chest pain, Calf discomfort, Uncontrolled pain Cleanse incision/area with: Soap & Water Home Medications: Medications to take at Discharge Hydroxyprogesterone Caproat/Pf [[place] 275 mg/1.1 ml Autoinjct] 275 mg SQ QWEEK 10/23/18 Pnv No.95/Ferrous Fum/Folic AC [ Vitamin Tablet] 1 tab PO DAILY 10/23/18 Ibuprofen 600 mg PO 4X/DAY #30 tab 03/15/19 Following Prescrptions Were Given to Patient: Ibuprofen 600 mg PO 4X/DAY #30 tab Primary Care Physician: Luis Lawrence MD [Primary Care Provider] - Please Follow Up With: Vivian George MD When: 6 weeks Disposition: Home Minutes spent on discharge:: 15 Patient Condition:: Good Medical Necessity - Tobacco Use Smoking Status: Former smoker Meaningful Use Info Meaningful Use Diagnoses (Choose all that apply): None applicable
[2018-10-29 00:45] LABS: Pathology Specimen OB SEE PATHOLOGY REPORT
== END 2018-10-28 11:45 | disposition home or self-care (01) | DRG 807 ==
LOC: WPOUT 11:04 → WP 11:11
PROVIDERS: Obstetrics & Gynecology; Admitting Provider Obstetrics & Gynecology; Family Provider Family Medicine; PCP Family Medicine; Referring Provider Obstetrics & Gynecology; Visit Provider Obstetrics & Gynecology
DX: O60.14X0 Preterm labor third trimester with preterm delivery third trimester, not applicable or unspecified (principal); Z37.0 Single live birth; O99.343 Other mental disorders complicating pregnancy, third trimester; F32.9 Major depressive disorder, single episode, unspecified; F41.9 Anxiety disorder, unspecified; O26.893 Other specified pregnancy related conditions, third trimester; O69.89X0 Labor and delivery complicated by other cord complications, not applicable or unspecified; Z3A.35 35 weeks gestation of pregnancy; Z87.891 Personal history of nicotine dependence
CPT/HCPCS: 59025; 59050; 85027; 86850; 86900; 88307; 99218; J7120; 90686; A4216; G0378; J2405

== ENCOUNTER → 2018-12-04 14:08 | Outpatient (CLI) | payer BC, MEDICAID, SELFPAY | PROVIDERS: Visit Provider Obstetrics & Gynecology | DX: N39.0 Urinary tract infection, site not specified (principal) | CPT/HCPCS: 87086; 87088; 87186 ==

== ENCOUNTER → 2020-08-10 | Outpatient (CLI) | payer BC, MEDICAID, SELFPAY ==
[2020-08-13 03:06] LABS: Chlamydia By Nucleic Acid AMP Negative (Negative)
[2020-08-13 12:32] LABS: Gonococcus By Nucleic Acid AMP Negative (Negative)
[2020-08-17 12:56] LABS: HPV APTIMA, High Risk Positive (Negative)
[2020-08-17 13:09] LABS: HPV Reflexed? YES, CHARGE PATIENT
== END | disposition home or self-care (01) ==
LOC: LABSPEC 16:07
PROVIDERS: Visit Provider Obstetrics & Gynecology
DX: Z12.4 Encounter for screening for malignant neoplasm of cervix (principal); Z11.3 Encounter for screening for infections with a predominantly sexual mode of transmission
CPT/HCPCS: 87491; 87591; 87624; 88175; G0145

== ENCOUNTER → 2020-10-05 | Outpatient (CLI) | payer BC, MEDICAID, SELFPAY ==
--- NOTE | 2020-10-05 | IMM_PTH ---
PATIENT: CAMRON CANCHOLA LOC: [facility] U#:[id number] AGE/SX: 35/F ROOM: RE10/05/[address]: Dr. Flaquito Santana MD : 1985 BED: DIS: 10/05/2020 SPEC #: [id number] RECD: 10/07/20 12:35 STATUS: RIKKI CHENCHO #: [id number] SABA: 10/05/20 00:[address]: Flaquito Santana DEPT: IMMUNOHISTOCHEMISTRY RECD BY: Cristina Godinez Tissues: A - Uterine cervix, NOS Procedures: p16 (initial) KI-67 (add) PHYSICIAN & INSTITUTION [place] [id number] SPECIMEN INFORMATION: Tissue Source: A - Cervix, four-quadrant biopsy Clinical Info: ASCUS, HPV Specimen Number: [id number] CPT code: 46293, 14408 METHODOLOGY: Deparaffinized sections of prefer/formalin-fixed tissue or PAP/DQ stained slides are incubated with monoclonal/polyclonal antibodies/oligonucleotide probes. Localization is made via biotin free immunoperoxidase method. Appropriate controls are performed and reacted as expected. Results on target cell population are indicated in the following table: RESULTS: ANTIBODY / CLONE RESULT Block A P16 (E6H4) positive, block staining Ki-67 (30-9) positive, high These tests were developed and their performance characteristics determined by [facility]. They may not have been cleared or approved by the U.S. Food and Drug Administration. The FDA has determined that such clearance or approval is not necessary. The above immunohistochemical/dualISH markers are ordered and reviewed by the Pathologist. INTERPRETATION: A. Cervix, four-quadrant biopsy: Mild, moderate and severe squamous dysplasia. SJ:linnette 10/08/2020
--- NOTE | 2020-10-05 14:30 | CER_PTH ---
PATIENT: CAMRON CANCHOLA [id number] AGE/SX: 35/F ROOM: RE10/05/[address]: Dr. Flaquito Santana MD : 1985 BED: DIS: 10/05/2020 SPEC #: [id number] RECD: 10/05/20 16:54 STATUS: RIKKI PAIZ #: [id number] SABA: 10/05/20 14:[address]: Flaquito Santana DEPT: SURGICAL PATHOLOGY RECD BY: Val Pena Tissues: A - Uterine cervix, NOS B - Endocervical Procedures: Surgery Specimen Level IV HEADER OPERATION: Colposcopy PRE-OP DIAGNOSIS: ASCUS, HPV TISSUE SUBMITTED: A - Four quad cervical biopsy, B - ECC MICROSCOPIC DIAGNOSIS A. Four quadrant cervical biopsy: Mild, moderate and severe squamous dysplasia (HGSIL and LILIAN I-III). Chronic inflammation. See comment. B. ECC: Fragments of benign endocervical epithelium with mild atypia, favor reactive, blood and mucous. Negative for dysplasia. RUBEN:linnette 10/07/2020 COMMENT A. Immunohistochemistry ([id number]) for surrogate HPV marker (p16) supports the above diagnosis. MICROSCOPIC DESCRIPTION Slides are reviewed. GROSS DESCRIPTION A - Received in fixative is one container labeled with the patient's name and designated four-quadrant cervical biopsy. The specimen consists of multiple irregular fragments of light turner soft tissue that in aggregate measure 1.5 x 0.5 x 0.1 cm. The specimen is totally submitted in one cassette. B - Received in fixative is one container labeled with the patient's name and designated ECC. The specimen consists of multiple fragments of hemorrhagic mucoid tissue that in aggregate measure 1.5 x 1.5 x 0.2 cm. The specimen is totally submitted in one cassette. / RUBEN:linnette 10/06/20 TC:5 CPT: 12011 x2
== END | disposition home or self-care (01) ==
LOC: LABSPEC 15:41
PROVIDERS: Visit Provider Obstetrics & Gynecology
DX: R87.610 Atypical squamous cells of undetermined significance on cytologic smear of cervix (ASC-US) (principal)
CPT/HCPCS: 88305; 88341; 88342

== ENCOUNTER 2020-11-09 09:29 | Day surgery (SDC) | payer BC, MEDICAID, SELFPAY ==
[2020-11-03 13:44] LABS: Hematocrit 42.7 % (37-47); Mean Corp Hgb Conc 32.8 g/dL (32-36); Mean Corpuscular Volume 91.4 fL (81-99); Mean Platelet Vol. 9.9 fl (6.2-12.0); Platelet Count 268 K/mm3 (150-450); RBC Distribution Width CV 13.1 % (11.6-14.6); RBC Distribution Width SD 43.4 fl (35.1-43.9); Red Blood Count 4.67 M/mm3 (4.2-5.4); White Blood Count 8.1 K/mm3 (4.4-11.0)
[2020-11-03 13:54] LABS: International Normalized Ratio 1.1; Partial Thromboplast Time 32.3 Seconds (24.1-36.2); Prothrombin Time (Protime)PT. 13.2 SECONDS (11.7-14.9)
[2020-11-03 14:02] LABS: Internal QC Validated? YES +Cl - CLEAR BKGD; Pregnancy, Serum, hCG Quali. NEGATIVE Negative
--- NOTE | 2020-11-08 20:24 | PCM.HP.BLA ---
History and Physical Date of Admission: 11/09/20 Surgical History and Physical Chelsie Yusuf, a 35 year old female 2 3 0 0 5, presents for LEEP on November 09, 2020. -- Severe Cervical Dysplasia -- Colposcopy showed severe dysplasia. MEDICATIONS HISTORY: Current medications prescribed by our practice are: 1. Nexplanon 68 mg subdermal implant, As Directed ALLERGIES: PCN, Swelling, Penicillins, Swelling, Vicodin and Vomiting Infections - chicken pox as a child Illnesses - depression Accidents - no injuries of consequence Hospitalizations - Childbirth and see surgery by [facility]; Review of Systems: GENERAL - Denies fever, or chills SKIN - Denies skin changes EYES - Denies visual changes EARS - Denies difficulty hearing NOSE - Denies nasal congestion or bleeding MOUTH - Denies sore throat or difficulty swallowing NECK - Denies pain or swelling RESPIRATORY - Denies shortness of breath or wheezing CARDIOVASCULAR - Denies palpitations or chest pain GASTROINTESTINAL - Denies nausea, vomiting, diarrhea, constipation GENITOURINARY - Denies dysuria, frequency of urination, incontinence of urine MUSCULOSKELETAL - Denies joint or muscle pain NEUROLOGICAL - Denies localized numbness or weakness PSYCHIATRIC - Denies depression or anxiety ENDOCRINE - Denies heat or cold intolerance, weight loss or gain HEMATO-IMMUNOLOGIC - Denies excessive bleeding with cuts SOCIAL HISTORY: Alcohol Use - denies drinking Smoking - 1/2 pack/day--advised to quit Diet - no special diet Lifestyle - Exercise - very active and active work [employer] Use - occasional Employer - [employer] Job Description - D[employer]. Illicit Drug Use - denies use of street drugs Sexual Activity - single sexual partner Residence - owns a home Place of - [place], [place] Hours Worked - 32 hrs/week Children Name(s) - DARION, Farooq, Corazon, Melina, Emeterio Control - Nexplanon FAMILY HISTORY: Family history of DM II and Heart Disease. Mother: Histoplasmosis, HTN, kidney disease and failure, Small Cell Lung Cancer and Cerebrovascular accident(CVA). Paternal Aunt: thyroid problems. MENSTRUAL HISTORY: LMP Known?- Definite Amount/Duration - 4-5 DAYS, Regularity - Regular, Frequency - monthly days, LMP - 08/30/20, Age Onset Menarche - 11 PAST PREGNANCIES: Total Pregnancies - 5; Full Term Pregnancies - 2; Premature - 3; Abortions, Induced - 0; Abortions, Spontaneous - 0; Ectopics - 0; Multiple Births - 0; Living Children - 5 SURGICAL HISTORY: 1. T and A ; - 2. THYROGLOSSAL DUCT CYSTECTOMY PHYSICAL EXAM BP- 116/88 Sitting, Right arm, large cuff Weight- 167.77614 lbs Height- 61.50 inch BMI:31.11 CONSTITUTIONAL - NAD, well nourished, and well developed SKIN - No rash, lesions, or ulcers HEENT - Normocephalic, PERRLA, EOMI NECK - No nodes, no nuchal rigidity and thyroid normal size and texture LYMPH NODES - Palpation of lymph nodes in neck and groins within normal limits LUNGS - CTA x2 without wheezes, crackles or rales CARDIAC - Regular rate and rhythm without rubs, murmurs, or gallops BREAST - No dominant masses, no tenderness, no axillary adenopathy, no nipple discharge, no skin changes ABDOMEN - Without hepatosplenomegaly, distention, masses, rebound, or guarding; normal bowel sounds; no hernias EXTREMITIES - No edema or calf tenderness NEUROLOGICAL - Cranial nerves II-XII grossly intact PSYCHIATRIC - A and O to time, place, person, mood and affect External Genitial Vagina - non-tender without lesions Urethra/Urethral Meatus - non-tender Bladder - non-tender Vagina - vaginal delacruz are pink and moist without loss of rugae and no evidence of atropy Cervix - without cervical motion tenderness and has normal size and features without evident lesions, Parous appearing os. and No lesions. Uterus - normal size, mobile and no tenderness Adnexa - no tenderness and no masses ASSESSMENT/PLAN: Severe Cervcial Dysplasia Discussed options for treatment and plan to proceed with LEEP conization of the cervix. Discussed RBAs and all questions answered.
--- NOTE | 2020-11-09 | IMM_PTH ---
PATIENT: CAMRON CANCHOLA LOC: [facility] [place] U#:[id number] AGE/SX: 35/F ROOM: RE11/09/[address]: Dr. Flaquito Santana MD : 1985 BED: DIS: 11/09/2020 SPEC #: [id number] RECD: 11/11/20 12:03 STATUS: RIKKI REAkhil #: [id number] SABA: 11/09/20 00:[address]: Flaquito Santana DEPT: IMMUNOHISTOCHEMISTRY RECD BY: Cristina Godinez ENTERED: 11/11/20 12:04 SP TYPE: IMMUNO OTHR DR: No Primary Care Phys Tissues: A - Uterine cervix, NOS Procedures: p16 (initial) KI-67 (add) P16 (add) PHYSICIAN & INSTITUTION [place] [phone] SPECIMEN INFORMATION: Tissue Source: A - Ectocervix, LEEP conization Clinical Info: Severe cervical dysplasia Specimen Number: [id number] A4 & A5 CPT code: 62057, 21862 x3 METHODOLOGY: Deparaffinized sections of prefer/formalin-fixed tissue or PAP/DQ stained slides are incubated with monoclonal/polyclonal antibodies/oligonucleotide probes. Localization is made via biotin free immunoperoxidase method. Appropriate controls are performed and reacted as expected. Results on target cell population are indicated in the following table: RESULTS: ANTIBODY / CLONE RESULT Block A4 P16 (E6H4) positive, focal, block-like Ki-67 (30-9) positive, moderate Block A5 P16 (E6H4) positive, focal, block-like Ki-67 (30-9) positive, moderate to high These tests were developed and their performance characteristics determined by [facility]. They may not have been cleared or approved by the U.S. Food and Drug Administration. The FDA has determined that such clearance or approval is not necessary. The above immunohistochemical/dualISH markers are ordered and reviewed by the Pathologist. INTERPRETATION: A. Ectocervix, LEEP conization: Focal moderate to severe squamous dysplasia LILIAN II-III (HSIL). AM:linnette 11/12/2020
[2020-11-09 09:51] VITALS: BP 101/79; PULSE 72; RESP 16; TEMP 36.9; O2SAT 99; BMI 30.5
[2020-11-09 09:51] LABS: Internal QC Validated? YES +Cl - CLEAR BKGD; Pregnancy, Urine Negative Negative
[2020-11-09] MEDS: Lactated Ringers 1,000 ML 100 ML IV (10:10)
--- NOTE | 2020-11-09 11:09 | PCM.OPRPT ---
Report of Operation Date of Procedure: 11/09/20 Pre-Operative Diagnosis: Severe Cervical Dysplasia Post-Operative Diagnosis: Severe Cervical Dysplasia Surgery/Procedure Performed:: LEEP Conization of the Cervix Description of Surgical Findings:: Normal-appearing cervix Type of Anesthesia:: MAC Anesthesiologist: Darrius Gamboa Specimen's removed: Ectocervix, endocervix, endocervical curettings after LEEP Estimated Blood Loss (mL): Minimal Fluids Replaced: Crystalloid Description of Procedure: Surgeon: Flaquito Santana MD, FACOG Indication: 35 year old patient who was recently noted to have severe cervical dysplasia at time of cervical biopsy. Given this, the patient desires that we proceed with the above surgery. She has been counseled regarding the risk, indications, and alternatives of this procedure and desire that we proceed. All questions answered. Procedure: Patient taken to the operating room where she was given IV sedation and placed in the dorsal lithotomy position and prepped and draped in the usual sterile fashion. Cervix was visualized and painted with Lugol's solution. The ectocervix was then removed to a depth of 5 mm on a setting of 50 W cutting and endocervix removed to a depth of 7 mm on a setting of 50 W cutting. Endocervical curettings were obtained. Base of the cone was then cauterized a setting of 50 W coagulation and Monsel's was painted across the LEEP base. Pt tolerated the procedure well and was taken to the recovery room in satisfactory condition. Sponge, instruments and needle counts were all correct. There were no apparent complications of the surgery. To Pathology: Ectocervix, endocervix, ECC after LEEP EBL Minimal. Grafts/Implants Used: None - Complications None - Admit VTE Documentation VTE Present on Admission: No
--- NOTE | 2020-11-09 11:10 | CONE_PTH ---
PATIENT: CAMRON CANCHOLA LOC: [facility] [place] U#:[id number] AGE/SX: 35/F ROOM: RE11/09/[address]: Dr. Flaquito Santana MD : 1985 BED: DIS: 11/09/2020 SPEC #: [id number] RECD: 11/09/20 13:38 STATUS: RIKKI REAkhil #: [id number] SABA: 11/09/20 11:[address]: Flaquito Santana DEPT: SURGICAL PATHOLOGY RECD BY: Val Pena ENTERED: 11/10/20 07:38 SP TYPE: Leep Cone RAISA DR: Radha Primary Care Phys Tissues: A - UTERINE CERVIX LEEP B - UTERINE CERVIX LEEP C - Endocervical Procedures: Surgery Specimen Level IV Surgery Specimen Level V HEADER OPERATION: LEEP cone PRE-OP DIAGNOSIS: Severe cervical dysplasia TISSUE SUBMITTED: A - Ectocervix, B - Endocervix, C - ECC after LEEP MICROSCOPIC DIAGNOSIS A. Ectocervix, LEEP conization: Moderate to severe squamous dysplasia, LILIAN II- III (HSIL) extending to endocervical margin. See comment. B. Endocervix, LEEP conization: Minimal chronic inflammation. No evidence of dysplasia. C. Endocervix, curettings: Scant strips of benign superficial endocervix. No evidence of dysplasia. AM:linnette 11/11/2020 COMMENT A. Results from immunohistochemistry ([id number]) for surrogate HPV marker (p16) will be reported separately. Case has been reviewed in consultation with Dr. Carrington who concurs with the above diagnosis. IDC:SJ MICROSCOPIC DESCRIPTION Slides are reviewed. GROSS DESCRIPTION A - Received in fixative is one container labeled with the patient's name and designated ectocervix. The specimen consists of a turner, indurated piece of tissue consistent with LEEP conization measuring 2 x 1 x 0.3 cm. No mucosal lesion is identified. Nonmucosal surface is inked black. The endocervical margin is inked blue. Also present in the container are three detached pieces of turner, indurated tissue measuring 1?x 0.5 x 0.2 cm and 0.6 x 0.5 x 0.1 cm and 0.5 x 0.4 x 0.2 cm. No mucosal lesion is identified. Nonmucosal surface is inked green. The entire specimen is submitted in five cassettes as follows: 1-4 - each piece containing one quadrant, 5 - three detached pieces of turner, indurated tissue. B - Received in fixative is one container labeled with the patient's name and designated endocervix. The specimen consists of a piece of turner, indurated tissue measuring 0.5 x 0.5 x 0.3 cm. No mucosal lesion is identified. Nonmucosal surface is inked black. The specimen is bisected and submitted entirely in one cassette. C - Received in fixative is one container labeled with the patient's name and designated ECC after LEEP. The specimen consists of multiple fragments of hemorrhagic mucoid tissue that in aggregate measure 1.5 x 0.2 x <0.1 cm. The specimen is totally submitted in one cassette. / RUBEN:linnette 11/10/20 TC:0 CPT: 19476 x2, 98242
--- NOTE | 2020-11-09 11:11 | DCINST_ITS ---
Discharge Diet: No Restrictions Discharge Activity: Return to Normal Activity, May not drive while taking narcotic pain medications. May resume sexual activity in: 4 weeks - nothing in the vagina for 4 weeks. Call your doctor if you observe: Fever of 101 or Higher, Using more than one pad per hour Allergies/Adverse Reactions: Allergies hydrocodone [From Vicodin] Adverse Reaction (Verified 11/09/20 09:50) Vomiting Penicillins Adverse Reaction (Verified 11/09/20 09:50) Swelling Medications to take at Discharge Ibuprofen 600 mg PO 4X/DAY #30 tab 10/26/18 Etonogestrel [Nexplanon (Bkc)] 68 mg SQ UD 11/03/20 Primary Care Physician: Care Physician,No Primary [Primary Care Provider] - Test Results: Test results from this visit will be discussed in further detail at your follow- up appointment, if applicable.
[2020-11-09] MEDS: Iodine/Potassium Iodide 14ML Bottle 1 DRP TOPICAL (11:19)
[2020-11-09] MEDS: Lubricating Jelly 60 GM Tube 30 GM TOPICAL (11:19)
[2020-11-09] MEDS: FERRIC SUBSULFATE 8 GM SOLN (11:24)
[2020-11-09 11:39] VITALS: BP 101/79; BP 112/79; PULSE 82; RESP 16; TEMP 36.3; O2SAT 100
[2020-11-09 11:40] VITALS: BP 101/79; BP 110/83; PULSE 71; RESP 16; O2SAT 100
[2020-11-09 11:45] VITALS: BP 101/79; BP 129/79; PULSE 73; RESP 16; O2SAT 100
[2020-11-09 11:50] VITALS: BP 101/79; BP 116/86; BP 120/88; PULSE 54; PULSE 58; RESP 16; TEMP 36.7; O2SAT 100; O2SAT 60
[2020-11-09 12:35] VITALS: BP 101/79; BP 117/82; PULSE 61; RESP 16; TEMP 36.8; O2SAT 100
== END 2020-11-09 12:39 | disposition home or self-care (01) ==
LOC: SDC 09:29 → AC 09:30
PROVIDERS: Anesthesiology; Referring Provider Obstetrics & Gynecology; Visit Provider Obstetrics & Gynecology
PROC: 0UBC7ZZ Excision of Cervix, Via Natural or Artificial Opening (ICD-10-PCS; CPT 57522; principal; 2020-11-09 10:55)
DX: D06.0 Carcinoma in situ of endocervix (principal); F17.200 Nicotine dependence, unspecified, uncomplicated; Z20.822 Contact with and (suspected) exposure to COVID-19
CPT/HCPCS: 00940; 57522; 36415; 81025; 84703; 85027; 85610; 85730; 86850; 86900; 86901; 87426; 88305; 88307; 88341; 88342; C9803; J7120; J2405

== ENCOUNTER → 2022-08-05 | Outpatient (CLI) | payer BC, MEDICAID, SELFPAY ==
[2022-08-17 19:27] LABS: HPV APTIMA, High Risk Negative (Negative)
== END | disposition home or self-care (01) ==
LOC: LABSPEC 11:39
PROVIDERS: Visit Provider Student in an Organized Health Care Education/Training Program
DX: Z12.4 Encounter for screening for malignant neoplasm of cervix (principal)
CPT/HCPCS: 87624; 88175; G0145

== ENCOUNTER 2022-12-12 16:04 | Emergency (ER) | payer BC, MEDICAID, SELFPAY ==
[2022-12-12 16:05] VITALS: BP 142/91; PULSE 106; RESP 16; TEMP 36.5; O2SAT 98; BMI 34.4
--- NOTE | 2022-12-12 16:58 | CT_ITS ---
INDICATION: dizziness EXAMINATION: CT BRAIN - CT Head or Brain W/O Contrast Injection TECHNIQUE: Multiple axial images were obtained of the head without intravenous contrast. A radiation dose optimization technique was used for this scan. IV Contrast dosage and agent: None. RADIATION DOSAGE (If Supplied By Facility): CTDIvol = ( 44.99 ) mGy, DLP = ( 796.11 ) mGycm COMPARISON: None FINDINGS: BRAIN PARENCHYMA: No intra- or extra-axial hemorrhage. No evidence of acute infarct. No intracranial mass or mass effect. There is preservation of the fuchs/white matter interface. Posterior fossa structures are unremarkable. CSF SPACES: Appropriate for age. No hydrocephalus. Basal cisterns are patent. CALVARIUM, SKULL BASE, PARANASAL SINUSES AND MASTOID AIR CELLS: Left maxillary sinus effusion. No discrete lytic or blastic abnormalities. ORBITS: Both globes, extraocular muscles, optic nerves and retrobulbar fat appear unremarkable. ASPECTS Score for Acute Strokes: 10 CT/Brain/Head without Contrast IMPRESSION: Left maxillary sinus effusion. Negative Brain CT without contrast. Electronically Signed: Shon Quick MD at 18:29 EDT ,
--- NOTE | 2022-12-12 17:00 | EDS_ITS ---
HPI History of Present Illness Chief Complaint: Dizziness Narrative Narrative: 37-year-old female presents with nausea, vomiting, vertigo, and headache that she has had since yesterday. She relates history that she has had vertigo in the past, but not this bad. She states that she felt like she had a lump in her throat on Monday, I thought it was related to her anxiety, and it went away. She took a car ride to [place], the [facility], and felt carsick. That also temporarily resolved. Yesterday, she relates history that she had nausea and vomiting 2-3 times without any blood in her emesis. She had vertigo and went to urgent care and was prescribed meclizine 25 mg 3 times daily. She developed a headache, mainly on the right side. She was also told that she had fluid behind both eardrums and was placed on loratadine. They also told her that if her symptoms worsen, that she needed to go to the ED for a full work- up. She denies any chest pain or shortness of breath, no other symptoms. She states her dizziness is worse when she turns her head to the left or looks towards the left. No paresthesias. [facility] Medical History (Updated 12/12/22 @ 18:45 by Christofer Patel MD) Goiter Home Medications ibuprofen 600 mg tablet 600 mg PO 4X/DAY pain or cramping ##30 10/26/18 [Rx Last Taken Unknown] etonogestrel 68 mg subdermal implant 68 mg SQ UD 11/03/20 [History Last Taken Unknown] Allergy/AdvReac Type Severity Reaction Status Date / Time hydrocodone [From Vicodin] AdvReac Vomiting Verified 12/12/22 16:04 Penicillins AdvReac Swelling Verified 12/12/22 16:04 Social History Smoking Status: Current some day smoker tobacco type: e-cigarettes ROS ROS ED ROS Narrative Constitutional: No fever, no chills. HEENT: No sore throat. No neck pain. No loss of vision. No rhinorrhea. Cardiovascular: No chest pain. No palpitations. No pedal edema. Respiratory: No cough, no shortness of breath. Abdominal: No abdominal pain. Positive nausea and vomiting yesterday, resolved. Genitourinary: No dysuria. No hematuria. Musculoskeletal: No myalgias. No arthralgias. Neurologic: Right-sided headaches. Positive dizziness. No lightheadedness. Skin: No rash. No change in color. Psychiatric: No depression. No anxiety. EXAM Physical Exam Narrative Exam Narrative: Afebrile. Vital signs noted. HEENT: Normocephalic. Atraumatic. PERRL, EOMI. Neck soft and supple. No point tenderness or step off. Cardiovascular: Regular rate and rhythm with intermittent tachycardia. No murmurs, rubs, or gallops appreciated. Respiratory: No tachypnea. Lungs clear to auscultation bilaterally. Gastrointestinal: Abdomen soft, nontender, with normoactive bowel sounds. No rebound or guarding. Neurological: Awake. Alert. Nonfocal, nonlateralizing. Positive vertigo, nausea and vomiting when looking to the left, no noted nystagmus. Skin: No rash. Normal color. No pallor. Musculoskeletal: No pedal edema. Full range of motion extremities. Const Vital Signs: 12/12/22 16:05 12/12/22 17:58 Temperature 97.7 F L Temperature Source Temporal Pulse Rate 106 H Respiratory Rate 16 Respiratory Effort Normal Non-Labored Respiratory Pattern Normal Blood Pressure 142/91 H Blood Pressure Mean 108 Pulse Ox 98 Oxygen Delivery Method Room Air MDM MDM MDM Narrative Medical decision making narrative: In the differential diagnosis is benign positional vertigo, inner ear problem secondary to a serous otitis, she may have more of an acute coronary syndrome, but she is not having chest pain so I feel this is less likely. I will obtain an EKG. She will be bolused IV fluids. She may also have a migrainous type headache on top of this so she was administered Reglan for her nausea and Benadryl along with 1 L of IV fluids. I do feel CT imaging is indicated given her persistent vertigo even with meclizine. I will check her electrolyte panel for dehydration. I will also check her serum test. I reviewed the patient's laboratory work, she has normal white count of 7.9, normal hemoglobin of 14.8, hematocrit 44.5. Platelet count normal at 291. Electrolyte panel shows chloride slightly elevated at 108 which I think is nonspecific, normal sodium of 140, potassium 4.4. She has a normal BUN of 9 and a normal creatinine of 0.9. I reviewed the CT results after reviewing the imaging, and reviewed the radiology report which shows no acute process. I also had obtained a troponin which is negative. I do not feel that she is having an acute coronary syndrome causing her dizziness. At this point in time, she was able to ambulate to the bathroom after Reglan and Benadryl. She states her headache has improved and she is not as vertiginous. I feel that her vertigo problem may be secondary to her inner ear problem so she should continue the loratadine. She also has meclizine at home. I feel she can follow-up with Dr. Dey with neurology and she was referred to a primary care provider. Return instructions to the emergency department were reviewed. Disposition is discharged home in improved and stable condition. Do not feel that she requires observation at this time for intractable vertigo. History & Record Review Discussion w/independent historian: Patient and Significant other Additional record(s) reviewed:: Prior outpatient record (Noncontributory) Lab Data Attestation: I reviewed the patient's lab results. Labs: Laboratory Results - last 24 hr 12/12/22 12/12/22 12/12/22 17:45 17:45 17:45 WBC 7.9 RBC 5.06 Hgb 14.8 Hct 44.5 MCV 87.9 MCH 29.2 MCHC 33.3 RDW Std Deviation 41.9 RDW Coeff of Jerrell 13.2 Plt Count 291 MPV 9.7 Immature Gran % (Auto) 0.400 Neut % (Auto) 59.0 Lymph % (Auto) 28.0 [place] % (Auto) 7.1 Eos % (Auto) 5.0 Baso % (Auto) 0.5 Absolute Neuts (auto) 4.7 Absolute Lymphs (auto) 2.22 Nucleated RBC % 0 Sodium 140 Potassium 4.4 Chloride 108 H Carbon Dioxide 26.0 Anion Gap 6 BUN 9 Creatinine 0.93 Estim Creat Clear Calc 64.23 Est GFR (MDRD) Af Amer 86 Est GFR (MDRD) Non-Af 71 BUN/Creatinine Ratio 9.6 L Glucose 85 Calcium 9.0 Total Bilirubin 0.30 AST 34 ALT 39 Alkaline Phosphatase 99 Troponin I High Sens 5 Total Protein 7.7 Albumin 3.6 Globulin 4.1 Albumin/Globulin Ratio 0.9 Lipase 29 Serum , Qual NEGATIVE Radiography Diagnostic Testing: Clinical Impression(s) from Imaging Studies Brain CT 12/12/22 16:58 IMPRESSION: Left maxillary sinus effusion. Negative Brain CT without contrast. Electronically Signed: Shon Quick MD at 18:29 EDT , Discharge Plan Triage Chief Complaint: Dizziness ED Provider: Christofer Patel Dx/Rx/DC Orders Clinical Impression: Vertigo, Nausea and vomiting, Headache Instructions: Understanding Headache Pain, ED Vertigo, Unspecified, ED Vomiting (Adult) Prescriptions: No Action ibuprofen 600 MG tablet 600 mg PO 4X/DAY Qty: 30 1RF etonogestrel 68 MG implant 68 mg SQ UD Primary Care Provider: Care Physician,No Primary Referrals: Shon Frankel MD [Med Staff - Active Staff] - As soon as possible Care Physician,No Primary [Primary Care Provider] - Disposition Disposition: Home, Self Care
[2022-12-12] MEDS: 0.9% Normal Saline 1,000 ML 1000 ML IV (17:40)
[2022-12-12] MEDS: DiphenhydrAMINE 50 MG/ML Syringe 25 MG IV (17:40)
[2022-12-12] MEDS: proCHLORPERazine 10 MG/2 ML Vial IV (17:41)
[2022-12-12 17:55] LABS: Absolute Lymphocyte Count 2.22 X10^3/uL (0.83-4.51); Absolute Neutrophil Count 4.7 X10^3/uL (2.0-7.7); Basophil# 0.04 X10^3/uL; Basophil% 0.5 % (0-1); Hematocrit 44.5 % (37-47); Hemoglobin 14.8 g/dL (12.0-15.0); Lymphocyte # 2.22 X10^3/ul (0.83-4.51); Mean Corp Hgb Conc 33.3 g/dL (32-36); Mean Corpuscular Hgb 29.2 pg (27.0-32.0); Mean Corpuscular Volume 87.9 fL (81-99); Mean Platelet Vol. 9.7 fl (6.2-12.0); Monocyte# 0.56 X10^3/uL; Monocyte% 7.1 % (0-10); NRBC Flagged by Analyzer 0 % (0-5); Neutrophil # 4.69 X10^3/uL (2.7-7.7); Platelet Count 291 K/mm3 (150-450); RBC Distribution Width CV 13.2 % (11.6-14.6); RBC Distribution Width SD 41.9 fl (35.1-43.9); Red Blood Count 5.06 M/mm3 (4.2-5.4); White Blood Count 7.9 K/mm3 (4.4-11.0)
[2022-12-12 18:11] LABS: Internal QC Validated? YES +Cl - CLEAR BKGD; Pregnancy, Serum, hCG Quali. NEGATIVE Negative
[2022-12-12 18:28] LABS: ALB/GLOB Ratio 0.9 RATIO (0.9-2.4); AST(SGOT) 34 U/L (15-37); Alanine Aminotransfer ALT/SGPT 39 U/L (13-56); Albumin, Serum 3.6 g/dL (3.2-5.0); Alkaline Phosphatase 99 U/L (45-117); Anion Gap 6 (5-15); BUN 9 mg/dL (7-18); BUN/Creat Ratio 9.6 RATIO (10-20); Chloride 108 mmol/L (98-107); Creatinine, Serum 0.93 mg/dL (0.55-1.02); EST Glomerular Filtration Rate 71 mL/min (>60); Est Glom Filt Rate - Afr Amer 86 mL/min (>60); Estimated Creatinine Clearance 64.23 ml/min; Globulin 4.1 g/dL (2.2-4.2); Glucose 85 mg/dL (74-106); Lipase 29 U/L (13-75); Potassium 4.4 mmol/L (3.5-5.1); Protein, Total 7.7 g/dL (6.4-8.2); Sodium Level 140 mmol/L (136-145); Troponin-I HS 5 pg/mL (3.0-54.0)
[2022-12-12 19:01] VITALS: BP 136/84; PULSE 102; RESP 16; O2SAT 99
== END 2022-12-12 19:03 | disposition home or self-care (01) ==
PROVIDERS: Emergency Provider Emergency Medicine; Visit Provider Emergency Medicine
DX: R42 Dizziness and giddiness (principal); R11.2 Nausea with vomiting, unspecified; R51.9 Headache, unspecified; F17.290 Nicotine dependence, other tobacco product, uncomplicated
CPT/HCPCS: 70450; 80053; 83690; 84484; 84703; 85025; 96361; 96374; 96375; 99283; A4216

== ENCOUNTER 2022-12-21 17:19 | Emergency (ER) | payer BC, MEDICAID, SELFPAY ==
[2022-12-21 17:20] VITALS: BP 145/95; PULSE 99; RESP 14; TEMP 36.2; O2SAT 99; BMI 33.5
--- NOTE | 2022-12-21 17:54 | EKG12_ITS ---
Test Reason : CP Blood Pressure : / mmHG Vent. Rate : 089 BPM Atrial Rate : 089 BPM P-R Int : 136 ms QRS Dur : 082 ms QT Int : 372 ms P-R-T Axes : 010 050 049 degrees QTc Int : 452 ms Normal sinus rhythm Normal ECG Confirmed by ANJELICA QUICK, NANCY ([id number]), associate editor KAMINI BARRIGA ([id number]) on 12/23/2022 8:06:08 AM Referred By: DONOVAN/DAYLIN Confirmed By:NANCY DEJESUS MD
[2022-12-21 17:55] VITALS: PULSE 87; RESP 16; O2SAT 99
--- NOTE | 2022-12-21 17:55 | EDS_ITS ---
HPI History of Present Illness Chief Complaint: Chest Pain Narrative Narrative: Patient presents for evaluation of chest pain and palpitations. She is not sure if it is anxiety. She states she was seen on the first and had her headache evaluated and an IV put in the dorsum of her left hand. She is concerned it might be a blood clot here. This is making her very anxious. Denies history of cardiac disease. Denies any pulmonary problems. No fevers, chills, coughing. No nausea or vomiting. PFSH PFS Medical History Anxiety Goiter Home Medications ibuprofen 600 mg tablet 600 mg PO 4X/DAY pain or cramping ##30 10/26/18 [Rx Last Taken Unknown] etonogestrel 68 mg subdermal implant 68 mg SQ UD 11/03/20 [History Last Taken Unknown] Allergy/AdvReac Type Severity Reaction Status Date / Time hydrocodone [From Vicodin] AdvReac Vomiting Verified 12/21/22 17:20 Penicillins AdvReac Swelling Verified 12/21/22 17:20 Social History Smoking Status: Current some day smoker tobacco type: e-cigarettes ROS ROS ED Constitutional Constitutional ED: Denies chills, fever(s) or sweats Eyes Eyes: Denies blurry vision or change in vision ENT ENT ED: Denies ear pain or sore throat Cardiovascular Cardiovascular: Reports chest pain and palpitations; Denies racing heartbeat Respiratory/Chest Respiratory/Chest: Denies cough, dyspnea or sputum Gastrointestinal Gastrointestinal: Denies abdominal pain, constipation, diarrhea, nausea or vomiting Genitourinary Genitourinary ED: Denies dysuria, hematuria or urinary frequency Musculoskeletal Musculoskeletal: Denies arthralgias, myalgias or neck pain Integumentary Denies abscess, Abrasions or rash Neurologic Neurologic: Denies headache(s), paresthesias or weakness Psychiatric Psychiatric: Denies anxiety, depression, suicidal ideation or suicidal thoughts Endocrine Endocrinology: Denies polydipsia or polyuria EXAM Physical Exam Const Vital Signs: 12/21/22 17:20 12/21/22 17:55 12/21/22 17:57 Temperature 97.1 F L Temperature Source Temporal Pulse Rate 99 87 Respiratory Rate 14 16 Blood Pressure 145/95 H Blood Pressure Mean 111 Pulse Ox 99 99 99 Oxygen Delivery Method Room Air Room Air Room Air 12/21/22 17:57 Temperature Temperature Source Pulse Rate Respiratory Rate Blood Pressure Blood Pressure Mean Pulse Ox Oxygen Delivery Method Room Air Positive well nourished General Appearance ED: NAD SARINA Reports moist mucous membranes normocephalic Eyes PERRL and EOMs intact bilaterally Resp normal respiratory effort and clear to auscultation bilaterally Auscultation: Negative for rales, rhonchi or wheezes Cardio regular rate and regular rhythm Extremity Extremity Narrative: Left hand on the dorsum shows a very small punctate area skin thickening where IV site was. There is no redness, erythema, edema. Alfredo's test is normal. Left hand neurovascular intact with brisk cap refill to all 5 fingers. Neuro oriented x3 and CN's II-XII intact bilaterally Sensorium / Orientation: awake and alert Motor Exam: strength 5/5 throughout Psych mental status grossly normal Mood & Affect: anxious Skin no rashes or lesions noted Heart Score History: Slightly/Non-Suspicious ECG: Normal Age: </= 45 years Risk Factors: No Risk Factors Troponin: </= Normal Limit Score: 0 MDM MDM MDM Narrative Medical decision making narrative: Patient presenting with chest pains and palpitations. She states it feels like tightness. She does have any cardiac history. She does think it might be her anxiety because she is worried she has a blood clot. The area on her hand does not look like a blood clot nor do I believe it is DVT. It is too late in the evening to obtain a DVT study of the upper extremity. Alfredo's test is normal. Left hand neurovascular intact brisk refill to all 5 fingers. Differential includes was not limited to pneumonia, PE, ACS, anxiety. We will obtain a CBC to assess white blood cell count, hemoglobin complaints, differential. BMP to assess renal function, electrolytes, glucose, anion gap. High-sensitivity troponin, EKG, chest x-ray will be obtained as part of cardiac work-up. D-dimer will be obtained. Patient declines anything for pain or nausea at this time. CBC shows a normal evidence of any 0.7. Hemoglobin monitor stable. Platelets are normal. Renal function electrolytes within normal limits. High-sensitivity troponin is 7 after chest pain all day I do not believe she is a delta troponin. D-dimer negative at 0.27 which makes PE unlikely. Patient counseled on all findings. We discussed that the area on her wrist is likely not a blood clot and with a negative D-dimer this makes it highly unlikely. Return precautions were discussed. Patient discharged in stable condition. Impression: 1. Chest pain?noncardiac 2. Anxiety Lab Data Attestation: I reviewed the patient's lab results. Labs: Laboratory Results - last 24 hr 12/21/22 12/21/22 12/21/22 17:48 17:48 17:48 WBC 8.7 RBC 4.75 Hgb 13.8 Hct 42.2 MCV 88.8 MCH 29.1 MCHC 32.7 RDW Std Deviation 42.8 RDW Coeff of Jerrell 13.1 Plt Count 248 MPV 9.7 Immature Gran % (Auto) 0.300 Neut % (Auto) 61.8 Lymph % (Auto) 27.0 [place] % (Auto) 7.7 Eos % (Auto) 2.7 Baso % (Auto) 0.5 Absolute Neuts (auto) 5.4 Absolute Lymphs (auto) 2.34 Nucleated RBC % 0 D-Dimer Quant (PE/DVT) < 0.27 L Sodium 141 Potassium 4.1 Chloride 107 Carbon Dioxide 26.0 Anion Gap 8 BUN 8 Creatinine 0.97 Estim Creat Clear Calc 64.41 Est GFR (MDRD) Af Amer 83 Est GFR (MDRD) Non-Af 68 BUN/Creatinine Ratio 8.3 L Glucose 95 Calcium 9.0 Troponin I High Sens 7 Radiography Diagnostic Testing: Clinical Impression(s) from Imaging Studies Chest X-Ray 12/21/22 18:00 IMPRESSION: Normal x-ray examination of the chest. Electronically Signed: Rustam Sosa MD at 18:20 EDT , Discharge Plan Triage Chief Complaint: Chest Pain ED Provider: Ezekiel Catherine Dx/Rx/DC Orders Instructions: ED Chest Pain, Noncardiac Prescriptions: No Action ibuprofen 600 MG tablet 600 mg PO 4X/DAY Qty: 30 1RF etonogestrel 68 MG implant 68 mg SQ UD Primary Care Provider: Care Physician,No Primary Referrals: [facility] Doctor,Out of [Non-Staff] - Disposition Disposition: Home, Self Care
[2022-12-21 17:57] VITALS: O2SAT 99
--- NOTE | 2022-12-21 18:00 | RAD_ITS ---
STUDY: X-RAY CHEST REASON FOR EXAM: Female, 37 years old. chest pain TECHNIQUE: Single AP portable view of the chest. COMPARISON: None. FINDINGS: The lungs are clear and expanded. There is no demonstrated pleural abnormality. Normal size heart. Normal mediastinum and satish. Normal visualized pulmonary arteries. Normal visualized aortic arch and descending thoracic aorta. Normal visualized thoracic spine. Normal visualized ribs, clavicles, and shoulders. There is no demonstrated abnormality of the visualized soft tissue structures of the upper abdomen. RAD/Chest 1 View (Portable) IMPRESSION: Normal x-ray examination of the chest. Electronically Signed: Rustam Sosa MD at 18:20 EDT ,
[2022-12-21 18:09] LABS: Absolute Lymphocyte Count 2.34 X10^3/uL (0.83-4.51); Absolute Neutrophil Count 5.4 X10^3/uL (2.0-7.7); Basophil# 0.04 X10^3/uL; Basophil% 0.5 % (0-1); Eosinophil# 0.23 X10^3/uL; Eosinophils% 2.7 % (0-5); Hematocrit 42.2 % (37-47); Hemoglobin 13.8 g/dL (12.0-15.0); Lymphocyte # 2.34 X10^3/ul (0.83-4.51); Mean Corp Hgb Conc 32.7 g/dL (32-36); Mean Corpuscular Hgb 29.1 pg (27.0-32.0); Mean Corpuscular Volume 88.8 fL (81-99); Mean Platelet Vol. 9.7 fl (6.2-12.0); Monocyte# 0.67 X10^3/uL; Monocyte% 7.7 % (0-10); NRBC Flagged by Analyzer 0 % (0-5); Neutrophil # 5.36 X10^3/uL (2.7-7.7); Neutrophil % 61.8 % (47-70); Platelet Count 248 K/mm3 (150-450); RBC Distribution Width CV 13.1 % (11.6-14.6); RBC Distribution Width SD 42.8 fl (35.1-43.9); Red Blood Count 4.75 M/mm3 (4.2-5.4); White Blood Count 8.7 K/mm3 (4.4-11.0)
[2022-12-21 18:27] LABS: Anion Gap 8 (5-15); BUN 8 mg/dL (7-18); BUN/Creat Ratio 8.3 RATIO (10-20); Chloride 107 mmol/L (98-107); Creatinine, Serum 0.97 mg/dL (0.55-1.02); EST Glomerular Filtration Rate 68 mL/min (>60); Est Glom Filt Rate - Afr Amer 83 mL/min (>60); Estimated Creatinine Clearance 64.41 ml/min; Glucose 95 mg/dL (74-106); Potassium 4.1 mmol/L (3.5-5.1); Sodium Level 141 mmol/L (136-145); Troponin-I HS 7 pg/mL (3.0-54.0)
[2022-12-21 18:37] LABS: D-Dimer Quantitative (DVT/PE) < 0.27 FEU/ug/m (0.27-0.49)
--- NOTE | 2022-12-21 19:01 | CM.ED ---
Social Work Note Referral Source: case find Referral Reason: no PCP SW met with patient and introduced herself and role as [facility] [employer]. Patient was seated on hospital bed and agreeable to speak with SW. SW inquired about patient's insurance and current PCP. Patient verified insurance and reports being established with MD Lentz with [facility]. Patient declined a list of local PCPs in network with patient's insurance and accepting new patients. Patient voiced no other needs at this time. SW remains available if needs arise. Jacquelyn Michael DIRECTOR EMPLOYEE SAFETY AND HEALTH, PAU
[2022-12-21 19:31] VITALS: BP 112/75; PULSE 81; RESP 18; O2SAT 97
== END 2022-12-21 19:36 | disposition home or self-care (01) ==
PROVIDERS: Emergency Provider Student in an Organized Health Care Education/Training Program; Visit Provider Student in an Organized Health Care Education/Training Program
DX: R07.89 Other chest pain (principal); F41.9 Anxiety disorder, unspecified; F17.290 Nicotine dependence, other tobacco product, uncomplicated
CPT/HCPCS: 71045; 80048; 84484; 85025; 85379; 93005; 99284; A4216

== ENCOUNTER 2023-03-27 10:20 | Emergency (ER) | payer OTHER, MEDICAID, SELFPAY ==
[2023-03-27 10:20] VITALS: BP 148/98; PULSE 106; RESP 18; TEMP 36.7; O2SAT 98; BMI 33.7
--- NOTE | 2023-03-27 10:35 | CT_ITS ---
STUDY: CT ABDOMEN AND PELVIS WITH CONTRAST REASON FOR EXAM: Female, 37 years old. Abd pain -- IV PO Contrast. Upper abdominal and right flank pain. Rectal pressure. RADIATION DOSAGE (If Supplied By Facility): CTDIvol = ( 17.17 ) mGy, DLP = ( 1052.21 ) mGycm TECHNIQUE: Transaxial images were obtained from the dome of the diaphragm to the symphysis pubis with oral contrast. Oral and amp; IV Gastrografin and amp; 100mL Isovue-370 was administered. Sagittal and coronal images were reconstructed. Individualized dose optimization techniques were used for this CT. COMPARISON: None. FINDINGS: The visualized lung bases are unremarkable. The visualized portions of the heart are within normal limits. Normal liver. Normal gallbladder and extrahepatic biliary system. Normal spleen. Normal pancreas. Normal bilateral adrenal glands. Normal right kidney. Normal left kidney. There is a small hiatal hernia. Normal small intestine. Normal colon. The appendix is visualized and appears normal. Normal abdominal aorta. Normal inferior vena cava. There is borderline retroperitoneal lymphadenopathy with enlarged nodes no greater than 10mm in the short axis diameter. Normal urinary bladder. There is a 2.3 cm by 2.1 cm cyst in the left ovary. Calcified phleboliths are seen in the pelvis. There is a small umbilical hernia containing fat. Degenerative changes at the L3-L4 level with the limbus vertebrae of the L4 vertebrae along the anterior superior endplate. CT/Abdomen/Pelvis WITH Contrast IMPRESSION: 2.37 x 2.1 cm cyst in the left ovary. Electronically Signed: Felipe Rivera MD at 12:30 EDT ,
--- NOTE | 2023-03-27 10:36 | EX.ED.DYSGE1 ---
HPI History of Present Illness Chief Complaint: Abd Pain Informant: patient Onset/Context/Timing Onset: Days Context: Gradual Onset Timing: Waxes and wanes Narrative Narrative: Patient presents with abdominal pain since the . She states she had [place] for lunch on that date. That afternoon she developed abdominal cramping and diarrhea. She thought she had food poisoning. The next day she felt slightly better but just ate a bland diet. She is continue to have intermittent abdominal pain with cramping. Yesterday she felt as if she needed to have a bowel movement but cannot pass anything. She tried an enema with no results. This morning she had a normal bowel movement. [facility] Medical History (Updated 03/27/23 @ 12:[address] Emily Vail MD) Anxiety Goiter Home Medications ibuprofen 600 mg tablet 600 mg PO 4X/DAY pain or cramping ##30 10/26/18 [Rx Last Taken Unknown] etonogestrel 68 mg subdermal implant 68 mg SQ UD 11/03/20 [History Last Taken Unknown] dicyclomine 20 mg tablet 20 mg PO TID PRN abdominal pain #14 tabs 03/27/23 [Rx Last Taken Unknown] omeprazole 20 mg capsule,delayed release 20 mg PO DAILY 4 weeks #28 caps 03/27/23 [Rx Last Taken Unknown] ondansetron 4 mg disintegrating tablet 4 mg PO Q8H PRN PRN Nausea #10 tabs 03/27/23 [Rx Last Taken Unknown] Allergy/AdvReac Type Severity Reaction Status Date / Time hydrocodone [From Vicodin] AdvReac Vomiting Verified 03/27/23 10:22 Penicillins AdvReac Swelling Verified 03/27/23 10:22 Surgical History (Updated 03/27/23 @ 10:[address] Emily Vail MD) History of thyroglossal duct cyst removal Social History Smoking Status: Current some day smoker tobacco type: e-cigarettes ROS ROS ED Constitutional Constitutional ED: Denies chills or fever(s) Eyes Eyes: Denies change in vision or discharge from eye(s) ENT ENT ED: Denies discharge from eye(s), rhinorrhea or sore throat Cardiovascular Cardiovascular: Denies chest pain or palpitations Respiratory/Chest Respiratory/Chest: Denies cough or dyspnea Gastrointestinal Gastrointestinal: Reports abdominal pain, diarrhea and nausea; Denies vomiting Genitourinary Genitourinary ED: Denies dysuria Musculoskeletal Musculoskeletal: Denies back pain or extremity pain Integumentary Denies Abrasions or rash Neurologic Neurologic: Denies headache(s) or weakness Psychiatric Psychiatric: Denies anxiety or depression Allergic/Immunologic Allergic/Immunologic ED: Denies lip swelling or urticaria EXAM Physical Exam Const Vital Signs: 03/27/23 10:20 03/27/23 12:20 Temperature 98.1 F Temperature Source Temporal Pulse Rate 106 H 78 Respiratory Rate 18 14 Blood Pressure 148/98 H 145/76 H Blood Pressure Mean 114 99 Pulse Ox 98 98 Oxygen Delivery Method Room Air Room Air Positive well nourished and well developed General Appearance ED: well developed HEENT Reports normocephalic and head/scalp atraumatic Eyes PERRL and EOMs intact bilaterally Neck supple Chest Wall inspection of chest normal and palpation of chest normal Resp normal respiratory effort and clear to auscultation bilaterally Cardio regular rate and regular rhythm GI GI Narrative: Upper abdominal tenderness to palpation. No guarding or rebound. Hypoactive but present bowel sounds. Palpation: soft Extremity normal to inspection Neuro oriented x3 and no sensory deficits noted Sensorium / Orientation: alert Motor Exam: strength 5/5 throughout Psych mental status grossly normal Skin no rashes or lesions noted MDM MDM MDM Narrative Medical decision making narrative: Patient is given IV fluids and Bentyl. Labwork obtained to evaluate for leukocytosis, anemia, and electrolyte derangement. CT scan of the abdomen and pelvis obtained to evaluate for any gallbladder abnormalities as well as diverticulitis or colitis. History & Record Review Discussion w/independent historian: Patient Lab Data Attestation: I reviewed the patient's lab results. Labs: Laboratory Results - last 24 hr 03/27/23 10:50 WBC 7.6 RBC 4.62 Hgb 14.0 Hct 40.2 MCV 87.0 MCH 30.3 MCHC 34.8 RDW Std Deviation 40.9 RDW Coeff of Jerrell 12.9 Plt Count 254 MPV 9.1 Immature Gran % (Auto) 0.100 Neut % (Auto) 64.3 Lymph % (Auto) 25.7 Wheeler % (Auto) 7.2 Eos % (Auto) 2.3 Baso % (Auto) 0.4 Absolute Neuts (auto) 4.9 Absolute Lymphs (auto) 1.94 Nucleated RBC % 0 Sodium 139 Potassium 3.5 Chloride 107 Carbon Dioxide 28.0 Anion Gap 4 L BUN 8 Creatinine 0.78 Estim Creat Clear Calc 80.10 Est GFR (MDRD) Af Amer 106 Est GFR (MDRD) Non-Af 88 BUN/Creatinine Ratio 10.3 Glucose 107 H Calcium 8.8 Total Bilirubin 0.30 Direct Bilirubin 0.07 AST 12 L ALT 26 Alkaline Phosphatase 98 Total Protein 7.4 Albumin 3.7 Globulin 3.7 Lipase 28 Serum , Qual NEGATIVE Radiography Diagnostic Testing: Clinical Impression(s) from Imaging Studies Abdomen/Pelvis CT 03/27/23 10:35 IMPRESSION: 2.37 x 2.1 cm cyst in the left ovary. Electronically Signed: Felipe Rivera MD at 12:30 EDT , Treatment and Re-Evaluation :: Repeat evaluation patient is still having some pain. CBC reveals normal white count at 7.6 with no left shift. Chemistry studies are unremarkable. LFTs are normal as well as lipase. test is negative. CT scan of the abdomen pelvis with contrast reveals evidence of a small hiatal hernia as well as a left ovarian cyst. There is no evidence of focal colitis or gallbladder abnormality. Patient will be given prescription for Bentyl, Zofran, Prilosec. She is to follow a bland diet. Return instructions are given. Discharge Plan Triage Chief Complaint: Abd Pain ED Provider: Emily Vail Dx/Rx/DC Orders Clinical Impression: Gastroenteritis, Abdominal pain Instructions: ED Abdominal Pain Unkn Cause Fem, ED Gastroenteritis, Noninfectious Prescriptions: New ondansetron 4 mg tablet,disintegrating 4 mg PO Q8H PRN PRN (Reason: Nausea) Qty: 10 0RF omeprazole 20 mg capsule,delayed release(DR/EC) 20 mg PO DAILY 28 Days Qty: 28 0RF dicyclomine 20 mg tablet 20 mg PO TID PRN (Reason: abdominal pain) Qty: 14 0RF No Action ibuprofen 600 MG tablet 600 mg PO 4X/DAY Qty: 30 1RF etonogestrel 68 MG implant 68 mg SQ UD Primary Care Provider: Care Physician,No Primary Referrals: Care Physician,No Primary [Primary Care Provider] - Activity Restrictions/Additional Instructions: Follow-up with your doctor at [facility] as discussed. Disposition Disposition: Home, Self Care
[2023-03-27] MEDS: Dicyclomine 10 MG Capsule 20 MG PO (10:50)
[2023-03-27] MEDS: 0.9% Normal Saline 1,000 ML 150 ML IV (10:50)
[2023-03-27 10:58] LABS: Absolute Lymphocyte Count 1.94 X10^3/uL (0.83-4.51); Absolute Neutrophil Count 4.9 X10^3/uL (2.0-7.7); Basophil# 0.03 X10^3/uL; Basophil% 0.4 % (0-1); Eosinophil# 0.17 X10^3/uL; Eosinophils% 2.3 % (0-5); Hematocrit 40.2 % (37-47); Lymphocyte # 1.94 X10^3/ul (0.83-4.51); Lymphocyte % 25.7 % (19-41); Mean Corp Hgb Conc 34.8 g/dL (32-36); Mean Corpuscular Hgb 30.3 pg (27.0-32.0); Mean Platelet Vol. 9.1 fl (6.2-12.0); Monocyte# 0.54 X10^3/uL; Monocyte% 7.2 % (0-10); NRBC Flagged by Analyzer 0 % (0-5); Neutrophil # 4.86 X10^3/uL (2.7-7.7); Neutrophil % 64.3 % (47-70); Platelet Count 254 K/mm3 (150-450); RBC Distribution Width CV 12.9 % (11.6-14.6); RBC Distribution Width SD 40.9 fl (35.1-43.9); Red Blood Count 4.62 M/mm3 (4.2-5.4); White Blood Count 7.6 K/mm3 (4.4-11.0)
[2023-03-27 11:06] LABS: Internal QC Validated? YES +Cl - CLEAR BKGD; Pregnancy, Serum, hCG Quali. NEGATIVE Negative
[2023-03-27 11:15] LABS: AST(SGOT) 12 U/L (15-37); Alanine Aminotransfer ALT/SGPT 26 U/L (13-56); Albumin, Serum 3.7 g/dL (3.2-5.0); Alkaline Phosphatase 98 U/L (45-117); Anion Gap 4 (5-15); BUN 8 mg/dL (7-18); BUN/Creat Ratio 10.3 RATIO (10-20); Bilirubin, Direct 0.07 mg/dL (0.00-0.30); Calcium,Total 8.8 mg/dL (8.5-10.1); Chloride 107 mmol/L (98-107); Creatinine, Serum 0.78 mg/dL (0.55-1.02); EST Glomerular Filtration Rate 88 mL/min (>60); Est Glom Filt Rate - Afr Amer 106 mL/min (>60); Globulin 3.7 g/dL (2.2-4.2); Glucose 107 mg/dL (74-106); Lipase 28 U/L (13-75); Potassium 3.5 mmol/L (3.5-5.1); Protein, Total 7.4 g/dL (6.4-8.2); Sodium Level 139 mmol/L (136-145)
[2023-03-27 12:20] VITALS: BP 145/76; PULSE 78; RESP 14; O2SAT 98
[2023-03-27 13:13] VITALS: BP 134/78; PULSE 88; RESP 18
== END 2023-03-27 13:14 | disposition home or self-care (01) ==
PROVIDERS: Emergency Provider Emergency Medicine; Visit Provider Emergency Medicine
DX: K52.9 Noninfective gastroenteritis and colitis, unspecified (principal); F17.290 Nicotine dependence, other tobacco product, uncomplicated
CPT/HCPCS: 74177; 80048; 80076; 83690; 84703; 85025; 96360; 96361; 99284; J7030; Q9967; A4216